=== PATIENT | male | born 1945 | race Caucasian/White ===

== ENCOUNTER 2018-04-17 08:02 | Emergency (ER) | payer OTHER ==
--- NOTE | 2018-04-17 08:38 | ED ---
General Adult HPI - General Chief complaint: Fall Stated complaint: Fell/rib pain Source: patient Mode of arrival: ambulatory Limitations: no limitations - History of Present Illness Initial comments: Dictation was produced using [employer] dictation software. please excuse any grammatical, word or spelling errors. Chief Complaint: 72-year-old male past medical history of A. fib, diabetes and hypertension presents with left chest pain after fall. History of Present Illness: States yesterday patient took a step over a baby gate approximately 2 feet tall. He states his foot got caught up. Causing him to fall laterally on his left side. He fell on his left arm scraping his left elbow. Patient reports some left-sided chest pain. Patient feels as though he may have fractured some of his ribs on his left chest. Patient complains of tenderness to palpation over the left anterior chest. Denies any significant tenderness to his back or with deep inspiration. The ROS documented in this emergency department record has been reviewed and confirmed by me. Those systems with pertinent positive or negative responses have been documented in the HPI. All other systems are other negative and/or noncontributory. - Related Data Home Medications Medication Instructions Recorded Confirmed Carvedilol [Coreg] 12.5 mg PO BID 04/17/18 04/17/18 Diltiazem Cd [Cardizem Cd] 120 mg PO DAILY 04/17/18 04/17/18 Fenofibrate Nanocrystallized 145 mg PO HS 04/17/18 04/17/18 [Fenofibrate] Folic Acid 0.4 mg PO HS 04/17/18 04/17/18 Glimepiride [Amaryl] 4 mg PO BID 04/17/18 04/17/18 Insulin Detemir [Levemir] 30 unit SQ HS 04/17/18 04/17/18 Losartan Potassium [Cozaar] 25 mg PO HS 04/17/18 04/17/18 Warfarin Sodium [Jantoven] 5 mg PO HS 04/17/18 04/17/18 metFORMIN HCL 1,000 mg PO BID 04/17/18 04/17/18 Allergies Allergy/AdvReac Type Severity Reaction Status Date / Time No Known Allergies Allergy Verified 04/17/18 09:05 Review of Systems ROS Statement: Those systems with pertinent positive or pertinent negative responses have been documented in the HPI. ROS Other: All systems not noted in ROS Statement are negative. Past Medical History Past Medical History: Atrial Fibrillation, Diabetes Mellitus, Hypertension History of Any Multi-Drug Resistant Organisms: None Reported Past Surgical History: Cholecystectomy Additional Past Surgical History / Comment(s): Prostate Past Psychological History: No Psychological Hx Reported Smoking Status: Never smoker Past Alcohol Use History: Occasional Past Drug Use History: None Reported General Exam - General Exam Comments Initial Comments: PHYSICAL EXAM: General Impression: Alert and oriented x3, not in acute distress HEENT: Normocephalic atraumatic, extra-ocular movements intact, pupils equal and reactive to light bilaterally, mucous membranes moist. Cardiovascular: Heart regular rate and rhythm, S1&S2 audible, no murmurs, rubs or gallops Chest: Lungs clear to auscultation bilaterally, no rhonchi, no wheeze, no rales , mild tenderness to palpation of the left anterior chest Abdomen: Bowel sounds present, abdomen soft, non-tender, non-distended, no organomegaly Musculoskeletal: Pulses present and equal in all extremities, no peripheral edema Motor: Power 5/5 bilaterally, no focal deficits noted Neurological: CN II-XII grossly intact, no focal motor or sensory deficits noted Skin: Intact with no visualized rashes Psych: Normal affect and mood Limitations: no limitations Course Vital Signs 04/17/18 04/17/18 08:06 09:57 Temperature 97.6 F 98.2 F Pulse Rate 78 77 Respiratory 20 18 Rate Blood Pressure 120/78 129/80 O2 Sat by Pulse 99 97 Oximetry Medical Decision Making - Medical Decision Making ED course: 72-year-old male with past medical history of age fibrillation on blood thinners presents with left chest pain status post fall. Vital signs upon arrival are within acceptable limits. Laboratory evaluation obtained. INR 1.7. This is subtherapeutic for him. X-ray of the ribs and chest were obtained showing possible evidence of nondisplaced rib fractures. Given clinical presentation there is suspicion that patient does have rib fractures. Patient states his pain isn't terrible. He does fill comfortable going home. Patient is well-appearing. Patient states he believes he can manage this at home. Patient given incentive spirometer and education by respiratory therapy. Lidocaine patch is applied. Patient underwent incentive spirometry with respiratory therapy without any significant complications. Patient states that he will take Tylenol at home. Follow-up with his primary care physician early next week. Patient understandable agreeable to this plan. Mirna return to the emergency Department with any worsening symptoms. - Lab Data Lab Results 04/17/18 Range/Units 08:40 PT 16.5 H (9.0-12.0) sec INR 1.7 H (<1.2) Disposition Clinical Impression: Rib fracture Disposition: HOME SELF-CARE Instructions: Rib Fracture (ED) Is patient prescribed a controlled substance at d/c from ED?: No Referrals: None,Stated [Primary Care Provider] - 1-2 days Time of Disposition: 10:09
--- NOTE | 2018-04-17 08:59 | XR ---
EXAMINATION TYPE: XR chest 2V, XR ribs LT DATE OF EXAM: 04/17/2018 COMPARISON: NONE HISTORY: Chest and left-sided rib pain after fall injury. TECHNIQUE: Frontal and lateral views of the chest are obtained. A frontal and oblique images of the left-sided ribs are acquired. FINDINGS: There is no focal air space opacity, pleural effusion, or pneumothorax seen. The cardiac silhouette size is within normal limits. Multilevel spurring in the thoracic spine is present. Cholec ystectomy clips are noted. Dedicated images the left-sided ribs show age-indeterminate mildly displaced fracture of the anterola teral left seventh rib, cannot exclude acute fracture, correlate clinically with point tenderness at this level. Suspect age-indeterminate minimally displaced of the adjacent anterolateral inferior left eighth rib. Overlying soft tissue is unremarkable. IMPRESSION: 1. No acute cardiopulmonary process. 2. Age-indeterminate but suspected acute minimally displaced fractures of the anterolateral left marcelle nth and eighth ribs. Correlate clinically with point tenderness at this level.
[2018-04-17 09:06] LABS: INR 1.7 (<1.2); Prothrombin Time 16.5 sec (9.0-12.0)
[2018-04-17] MEDS ORDERED: LIDOCAINE 5% PATCH TOPICAL STA (09:38)
[2018-04-17 09:58] VITALS: BP 129/80; PULSE 77; RESP 18; TEMP 98.2
== END 2018-04-17 10:28 | disposition home or self-care (01) ==
LOC: EC 08:02
DX: S22.32XA Fracture of one rib, left side, initial encounter for closed fracture (principal); S50.312A Abrasion of left elbow, initial encounter; I48.91 Unspecified atrial fibrillation; E11.9 Type 2 diabetes mellitus without complications; I10 Essential (primary) hypertension; Z79.4 Long term (current) use of insulin; Z79.01 Long term (current) use of anticoagulants; Z79.899 Other long term (current) drug therapy; W17.89XA Other fall from one level to another, initial encounter; Y93.89 Activity, other specified; Y92.009 Unspecified place in unspecified non-institutional (private) residence as the place of occurrence of the external cause
CPT/HCPCS: 36415; 71046; 85610; 99284

== ENCOUNTER 2022-03-10 02:57 | Emergency (ER) | payer MEDICARE, OTHER ==
[2022-03-10 03:04] VITALS: BP 175/85; PULSE 75; RESP 22; TEMP 97.7
[2022-03-10] MEDS ORDERED: ASPIRIN 81 MG PO STA (03:25)
[2022-03-10 03:36] LABS: Basophils # (A) 0.1 k/uL (0-0.2); Basophils % (A) 1 %; Eosinophils # (A) 0.2 k/uL (0-0.7); Eosinophils % (A) 3 %; HCT 42.4 % (39.0-53.0); HGB 14.9 gm/dL (13.0-17.5); Lymphocytes # (A) 1.4 k/uL (1.0-4.8); Lymphocytes % (A) 18 %; MCHC 35.2 g/dL (31.0-37.0); Mean Platelet Volume 8.8; Monocytes # (A) 0.6 k/uL (0-1.0); Monocytes % (A) 8 %; Neutrophils # (A) 5.2 k/uL (1.3-7.7); Neutrophils % (A) 68 %; Platelet Count 155 k/uL (150-450); RBC 4.82 m/uL (4.30-5.90); RDW 14.3 % (11.5-15.5); WBC 7.7 k/uL (3.8-10.6)
[2022-03-10 03:46] LABS: Partial Thromboplastin Time 38.7 sec (22.0-30.0); Prothrombin Time 30.2 sec (9.0-12.0)
[2022-03-10 03:58] LABS: ALT 22 U/L (4-49); AST 21 U/L (17-59); African American GFR (CKD) >90 (>60 ml/min/1.73 sqM); Albumin 4.2 g/dL (3.5-5.0); Alkaline Phosphatase 55 U/L (38-126); Anion Gap 6 mmol/L; Blood Urea Nitrogen 17 mg/dL (9-20); Calcium 8.7 mg/dL (8.4-10.2); Carbon Dioxide 27 mmol/L (22-30); Chloride 103 mmol/L (98-107); Glucose 174 mg/dL (74-99); Magnesium 1.9 mg/dL (1.6-2.3); Non-African American GFR(CKD) >90 (>60 ml/min/1.73 sqM); Potassium 4.5 mmol/L (3.5-5.1); Sodium 136 mmol/L (137-145)
--- NOTE | 2022-03-10 04:06 | ED ---
General Adult HPI - General Chief complaint: Shortness of Breath Stated complaint: Shortness of Breath Time Seen by Provider: 03/10/22 03:05 Source: patient, family, RN notes reviewed, old records reviewed Mode of arrival: wheelchair Limitations: no limitations - History of Present Illness Initial comments: Patient is a 76-year-old male with past medical history remarkable for atrial fibrillation, diabetes, hypertension who presents emergency Department complaining of one-day history of dyspnea. Patient has a difficult time describing it other than that he is short of breath. It seems to always be there and is constant. No real change with exertion. Patient is on blood thinners at baseline. Had a recent travel from [place]. Denies any lower e xtremity swelling or pain. Denies any history of blood clots. Denies any chest pain, abdominal pain, nausea, vomiting. His no other acute complaints other than this dyspnea. Denies fevers, chills, cough. Patient's is being worked up for pancreatic cancer at this time and is under more stress lately. Presents for further evaluation for his dyspnea. States is worse when sitting up, as well as when laying down. No known palliative or provocative factors. Has been constant all day. - Related Data Home Medications Medication Instructions Recorded Confirmed Diltiazem Cd [Cardizem Cd] 120 mg PO DAILY 04/17/18 04/17/18 Fenofibrate Nanocrystallized 145 mg PO HS 04/17/18 04/17/18 [Fenofibrate] Folic Acid 0.4 mg PO HS 04/17/18 04/17/18 Glimepiride [Amaryl] 4 mg PO BID 04/17/18 04/17/18 Insulin Detemir (Levemir) [Levemir] 30 unit SQ HS 04/17/18 04/17/18 Losartan Potassium [Cozaar] 25 mg PO HS 04/17/18 04/17/18 Warfarin Sodium [Jantoven] 5 mg PO HS 04/17/18 04/17/18 carvediloL [Coreg] 12.5 mg PO BID 04/17/18 04/17/18 metFORMIN HCL [Glucophage] 1,000 mg PO BID 04/17/18 04/17/18 Allergies Allergy/AdvReac Type Severity Reaction Status Date / Time No Known Allergies Allergy Verified 03/10/22 03:04 Review of Systems ROS Statement: Those systems with pertinent positive or pertinent negative responses have been documented in the HPI. Review of Systems: CONST: Denies fever EYES: Denies blurry vision ENT: Denies nasal congestion C/V: Denies Chest pain RESP: Endorses shortness of breath GI: Denies abdominal pain : Denies dysuria SKIN: Denies rash. MSK: Denies joint pain. NEURO: Denies headache ROS Other: All systems not noted in ROS Statement are negative. Past Medical History Past Medical History: Atrial Fibrillation, Diabetes Mellitus, Hypertension History of Any Multi-Drug Resistant Organisms: None Reported Past Surgical History: Cholecystectomy Additional Past Surgical History / Comment(s): Prostate Past Psychological History: No Psychological Hx Reported Smoking Status: Never smoker Past Alcohol Use History: Occasional Past Drug Use History: None Reported General Exam - General Exam Comments Initial Comments: General: Appears in no acute distress. HEAD: Normal with no signs of head trauma. EYES: PERRLA, EOMI, conjunctiva normal, no discharge. ENT: Hearing grossly intact, normal oropharynx. RESPIRATORY: Clear breath sounds bilaterally. No wheezes, rales, or rhonchi. No increased work of breathing. No hypoxia. C/V: Regular rate and rhythm. S1 and S2 auscultated, no edema, peripheral pulses 2+ and intact throughout ABD: Abd is soft, nontender, nondistended EXT: Normal range of motion, no obvious deformity SKIN: No rashes or lesions observed on exposed skin. NEURO: Alert and oriented 4. No focal sensory strength deficits. Limitations: no limitations Course Vital Signs 03/10/22 03:02 Temperature 97.7 F Pulse Rate 75 Respiratory 22 Rate Blood Pressure 175/85 O2 Sat by Pulse 95 Oximetry Medical Decision Making - Medical Decision Making [place] on the patient's presentation and physical exam, I'm concerned for possible cardiopulmonary etiology for his current symptoms. We will check his INR as he is on Coumadin for atrial fibrillation. We'll obtain cardio pulmonary labs. He was in agreement this plan. He will be given an aspirin. Vital signs within acceptable limits. No respiratory distress. Cannot definitively rule out anxiety as potential cause for this. EKG showed atrial fibrillation with no signs of acute ischemia. Chest x-ray as interpreted by myself reveals no acute cardiopulmonary process. No infiltrate, bony traumatic injury, pneumothorax. Laboratory studies remarkable for a therapeutic INR of 3.0. Troponin is undetectable. BNP within normal limits. Covid and flu negative. Remainder the labs are within acceptable limits. On reevaluation, patient states that his dyspnea has resolved. Patient has been sitting without any dyspnea at this time. We did lay the patient down as well as ambulate him and dyspnea and did not return. I did offer him CT of the chest to further evaluate his lungs which she declined at this time. We have no concern for PE at this time as the patient is a therapeutic INR on Coumadin. I do believe it is safe for him to be discharged home at this time, with strict return precautions. He was in agreement this plan. I instructed the patient to follow up with their PCP in the next 1-3 days. I explained that the patient should return to the emergency department if they experience any worsening symptoms. Strict return precautions were discussed with the patient. The patient expressed understanding of these instructions. I answ ered all questions that the patient had. The patient was discharged home in good condition with their prescriptions and follow up information. - Lab Data Result diagrams: 03/10/22 03:12 03/10/22 03:12 Lab Results 03/10/22 03/10/22 03/10/22 Range/Units 03:12 03:12 03:12 WBC 7.7 (3.8-10.6) k/uL RBC 4.82 (4.30-5.90) m/uL Hgb 14.9 (13.0-17.5) gm/dL Hct 42.4 (39.0-53.0) % MCV 88.0 (80.0-100.0) fL MCH 31.0 (25.0-35.0) pg MCHC 35.2 (31.0-37.0) g/dL RDW 14.3 (11.5-15.5) % Plt Count 155 (150-450) k/uL MPV 8.8 Neutrophils % 68 % Lymphocytes % 18 % Monocytes % 8 % Eosinophils % 3 % Basophils % 1 % Neutrophils # 5.2 (1.3-7.7) k/uL Lymphocytes # 1.4 (1.0-4.8) k/uL Monocytes # 0.6 (0-1.0) k/uL Eosinophils # 0.2 (0-0.7) k/uL Basophils # 0.1 (0-0.2) k/uL PT 30.2 H (9.0-12.0) sec INR 3.0 H (<1.2) APTT 38.7 H (22.0-30.0) sec Sodium 136 L (137-145) mmol/L Potassium 4.5 (3.5-5.1) mmol/L Chloride 103 (98-107) mmol/L Carbon Dioxide 27 (22-30) mmol/L Anion Gap 6 mmol/L BUN 17 (9-20) mg/dL Creatinine 0.72 (0.66-1.25) mg/dL Est GFR (CKD-EPI)AfAm >90 (>60 ml/min/1.73 sqM) Est GFR (CKD-EPI)NonAf >90 (>60 ml/min/1.73 sqM) Glucose 174 H (74-99) mg/dL Calcium 8.7 (8.4-10.2) mg/dL Magnesium 1.9 (1.6-2.3) mg/dL Total Bilirubin 1.0 (0.2-1.3) mg/dL AST 21 (17-59) U/L ALT 22 (4-49) U/L Alkaline Phosphatase 55 (38-126) U/L Troponin I (0.000-0.034) ng/mL NT-Pro-B Natriuret Pep pg/mL Total Protein 7.0 (6.3-8.2) g/dL Albumin 4.2 (3.5-5.0) g/dL Coronavirus (PCR) (Not Detectd) Influenza Type A RNA (Not Detectd) Influenza Type B (PCR) (Not Detectd) 03/10/22 03/10/22 03/10/22 Range/Units 03:12 03:12 03:45 WBC (3.8-10.6) k/uL RBC (4.30-5.90) m/uL Hgb (13.0-17.5) gm/dL Hct (39.0-53.0) % MCV (80.0-100.0) fL MCH (25.0-35.0) pg MCHC (31.0-37.0) g/dL RDW (11.5-15.5) % Plt Count (150-450) k/uL MPV Neutrophils % % Lymphocytes % % Monocytes % % Eosinophils % % Basophils % % Neutrophils # (1.3-7.7) k/uL Lymphocytes # (1.0-4.8) k/uL Monocytes # (0-1.0) k/uL Eosinophils # (0-0.7) k/uL Basophils # (0-0.2) k/uL PT (9.0-12.0) sec INR (<1.2) APTT (22.0-30.0) sec Sodium (137-145) mmol/L Potassium (3.5-5.1) mmol/L Chloride (98-107) mmol/L Carbon Dioxide (22-30) mmol/L Anion Gap mmol/L BUN (9-20) mg/dL Creatinine (0.66-1.25) mg/dL Est GFR (CKD-EPI)AfAm (>60 ml/min/1.73 sqM) Est GFR (CKD-EPI)NonAf (>60 ml/min/1.73 sqM) Glucose (74-99) mg/dL Calcium (8.4-10.2) mg/dL Magnesium (1.6-2.3) mg/dL Total Bilirubin (0.2-1.3) mg/dL AST (17-59) U/L ALT (4-49) U/L Alkaline Phosphatase (38-126) U/L Troponin I <0.012 (0.000-0.034) ng/mL NT-Pro-B Natriuret Pep 612 pg/mL Total Protein (6.3-8.2) g/dL Albumin (3.5-5.0) g/dL Coronavirus (PCR) (Not Detectd) Influenza Type A RNA Not Detected (Not Detectd) Influenza Type B (PCR) Not Detected (Not Detectd) 03/10/22 Range/Units 03:45 WBC (3.8-10.6) k/uL RBC (4.30-5.90) m/uL Hgb (13.0-17.5) gm/dL Hct (39.0-53.0) % MCV (80.0-100.0) fL MCH (25.0-35.0) pg MCHC (31.0-37.0) g/dL RDW (11.5-15.5) % Plt Count (150-450) k/uL MPV Neutrophils % % Lymphocytes % % Monocytes % % Eosinophils % % Basophils % % Neutrophils # (1.3-7.7) k/uL Lymphocytes # (1.0-4.8) k/uL Monocytes # (0-1.0) k/uL Eosinophils # (0-0.7) k/uL Basophils # (0-0.2) k/uL PT (9.0-12.0) sec INR (<1.2) APTT (22.0-30.0) sec Sodium (137-145) mmol/L Potassium (3.5-5.1) mmol/L Chloride (98-107) mmol/L Carbon Dioxide (22-30) mmol/L Anion Gap mmol/L BUN (9-20) mg/dL Creatinine (0.66-1.25) mg/dL Est GFR (CKD-EPI)AfAm (>60 ml/min/1.73 sqM) Est GFR (CKD-EPI)NonAf (>60 ml/min/1.73 sqM) Glucose (74-99) mg/dL Calcium (8.4-10.2) mg/dL Magnesium (1.6-2.3) mg/dL Total Bilirubin (0.2-1.3) mg/dL AST (17-59) U/L ALT (4-49) U/L Alkaline Phosphatase (38-126) U/L Troponin I (0.000-0.034) ng/mL NT-Pro-B Natriuret Pep pg/mL Total Protein (6.3-8.2) g/dL Albumin (3.5-5.0) g/dL Coronavirus (PCR) Not Detected (Not Detectd) Influenza Type A RNA (Not Detectd) Influenza Type B (PCR) (Not Detectd) - EKG Data -: EKG Interpreted by Me EKG Comments: 12-lead Electrocardiogram Interpretation Note EKG was reviewed and interpreted by myself. 12-lead ECG performed at 0312 is interpreted by me as revealing atrial fibrillation at a rate of 75 beats per minute. [place] is normal. QRS duration is 90 ms, QTc is 419 ms. There were no ST or T wave abnormalities to suggest myocardial ischemia or injury. R wave progression across the precordium was satisfactory. By my interpretation this EKG is non-diagnostic for acute ischemia. History of atrial fibrillation. No prior EKG for comparison. Disposition Clinical Impression: Dyspnea Disposition: HOME SELF-CARE Condition: Good Instructions (If sedation given, give patient instructions): Dyspnea (ED) Is patient prescribed a controlled substance at d/c from ED?: No Referrals: Nonstaff,Physician [Primary Care Provider] - 1-2 days Time of Disposition: 04:45
--- NOTE | 2022-03-10 04:24 | XR ---
EXAMINATION TYPE: XR chest 2V DATE OF EXAM: 03/10/2022 COMPARISON: 04/17/2018 HISTORY: Short of breath TECHNIQUE: FINDINGS: There is no heart failure nor confluent pneumonic infiltrate. Costophrenic angles are clear . There are chest leads. There are no hilar masses. Bony thorax is intact. IMPRESSION: No active cardiopulmonary disease. Normal heart. No change.
== END 2022-03-10 05:28 | disposition home or self-care (01) ==
LOC: EC 02:57
DX: R06.00 Dyspnea, unspecified (principal); I48.91 Unspecified atrial fibrillation; E11.9 Type 2 diabetes mellitus without complications; I10 Essential (primary) hypertension; Z79.4 Long term (current) use of insulin; Z79.84 Long term (current) use of oral hypoglycemic drugs; Z79.899 Other long term (current) drug therapy; Z20.822 Contact with and (suspected) exposure to COVID-19
CPT/HCPCS: 36415; 71046; 80053; 83735; 83880; 84484; 85025; 85610; 85730; 87502; 87635; 93005; 99285

== ENCOUNTER 2022-03-10 20:01 | Observation (INO) | payer MEDICARE ==
--- NOTE | 2022-03-10 21:58 | XR ---
EXAMINATION TYPE: XR chest 2V DATE OF EXAM: 03/10/2022 COMPARISON: Today HISTORY: Short of breath TECHNIQUE: FINDINGS: Heart and mediastinum are normal. Lungs are clear. Diaphragm is normal. Bony thorax is inta ct. IMPRESSION: Normal chest. No adverse change.
--- NOTE | 2022-03-10 22:06 | ED ---
General Adult HPI - General Chief complaint: Shortness of Breath Stated complaint: SOB Time Seen by Provider: 03/10/22 21:15 Source: patient, RN notes reviewed, old records reviewed Mode of arrival: ambulatory Limitations: no limitations - History of Present Illness Initial comments: Patient is a 76-year-old male who has a history of diabetes, atrial flutter ablation, hypertension who was evaluated by myself this morning presents emergency Department complaining of continued shortness of breath. Patient has been having dyspnea episodes for a few days. Yesterday was bad all day, but resolved while he was here in the department. Workup at that time was unremarkable. We did offer him a CT scan which she declined at that time. Since he was feeling improved he wanted to go home and return if it got worse. He returns this evening because the dyspnea returned this afternoon no changes from yesterday. States it is constant and not worse with exertion. Not really any worse with position but states he feels like he cannot fully empty his heriberto gs. No smoking history. No history of asthma or COPD. No productive cough, no fevers. No chest pain, abdominal pain, nausea, vomiting. Presents for further evaluation at this time. - Related Data Home Medications Medication Instructions Recorded Confirmed Diltiazem Cd [Cardizem Cd] 120 mg PO DAILY 04/17/18 04/17/18 Fenofibrate Nanocrystallized 145 mg PO HS 04/17/18 04/17/18 [Fenofibrate] Folic Acid 0.4 mg PO HS 04/17/18 04/17/18 Glimepiride [Amaryl] 4 mg PO BID 04/17/18 04/17/18 Insulin Detemir (Levemir) [Levemir] 30 unit SQ HS 04/17/18 04/17/18 Losartan Potassium [Cozaar] 25 mg PO HS 04/17/18 04/17/18 Warfarin Sodium [Jantoven] 5 mg PO HS 04/17/18 04/17/18 carvediloL [Coreg] 12.5 mg PO BID 04/17/18 04/17/18 metFORMIN HCL [Glucophage] 1,000 mg PO BID 04/17/18 04/17/18 Allergies Allergy/AdvReac Type Severity Reaction Status Date / Time No Known Allergies Allergy Verified 03/10/22 20:21 Review of Systems ROS Statement: Those systems with pertinent positive or pertinent negative responses have been documented in the HPI. Review of Systems: CONST: Denies fever EYES: Denies blurry vision ENT: Denies nasal congestion C/V: Denies Chest pain RESP: Endorses shortness of breath GI: Denies abdominal pain : Denies dysuria SKIN: Denies rash. MSK: Denies joint pain. NEURO: Denies headache ROS Other: All systems not noted in ROS Statement are negative. Past Medical History Past Medical History: Atrial Fibrillation, Diabetes Mellitus, Hypertension History of Any Multi-Drug Resistant Organisms: None Reported Past Surgical History: Cholecystectomy Additional Past Surgical History / Comment(s): Prostate Past Psychological History: No Psychological Hx Reported Smoking Status: Never smoker Past Alcohol Use History: Occasional Past Drug Use History: None Reported General Exam - General Exam Comments Initial Comments: General: Appears in no acute distress. HEAD: Normal with no signs of head trauma. EYES: PERRLA, EOMI, conjunctiva normal, no discharge. ENT: Hearing grossly intact, normal oropharynx. RESPIRATORY: Clear breath sounds bilaterally. No wheezes, rales, or rhonchi. No increased work of breathing.. Pulse ox is 96% on room air C/V: Irregular rate and rhythm. S1 and S2 auscultated, no edema, peripheral pulses 2+ and intact throughout ABD: Abd is soft, nontender, nondistended EXT: Normal range of motion, no obvious deformity SKIN: No rashes or lesions observed on exposed skin. NEURO: Alert and oriented 4. Limitations: no limitations Course Vital Signs 03/10/22 03/10/22 03/10/22 20:16 20:34 22:00 Temperature 97.4 F L Pulse Rate 84 76 Respiratory 25 H 18 16 Rate Blood Pressure 157/86 151/87 O2 Sat by Pulse 93 L 96 Oximetry 03/10/22 03/11/22 23:00 00:00 Temperature Pulse Rate 85 83 Respiratory 20 16 Rate Blood Pressure 153/85 135/83 O2 Sat by Pulse 92 L 95 Oximetry Medical Decision Making - Medical Decision Making Based on the patient's presentation and physical exam, he presents with dyspnea of unknown etiology once again this evening. We will obtain cardio pulmonary workup somewhat yesterday as well as obtain a CT angiogram of the chest. He was in agreement this plan. Vital signs within acceptable limits. EKG shows no signs of acute ischemia. Chest x-ray as interpreted by myself reveals no acute cardio pulmonary process. No pneumothorax, no infiltrate, no acute bony traumatic injury.Patient's laboratory studies once again were within acceptable limits. He is slightly hyperglycemic at 242. Lactate, troponin, BNP all unremarkable. Urinalysis is remarkable for 4+ glucose. Covid, flu, RSV negative. Patient has a therapeutic INR. CT chest is interpreted by myself showed no evidence of acute pulmonary embolism. No obvious signs of infection. No pneumothorax. No obvious explanation for his current symptoms. The patient was ambulated, patient did become somewhat hypoxic down into the upper 80%'s. Patient did not have this yesterday, as saturations remained in th e 90%'s is morning and discharge. We did discuss this and I would like to admit him to the hospital for echocardiogram and evaluation by cardiology over concern for possible valvular pathology causing his current symptoms. Cannot rule out pulmonary hypertension either. He was in agreement with this plan. He is relatively asymptomatic at rest. We'll continue his home medications. Cardiology was consulted. Echo was ordered. I spoke with the admitting physician to observation, Dr. Chowdary was in agreement with this plan. Patient was admitted in stable condition. - Lab Data Result diagrams: 03/10/22 22:00 03/10/22 22:00 Lab Results 03/10/22 03/10/22 03/10/22 Range/Units 21:58 21:58 22:00 WBC 8.6 (3.8-10.6) k/uL RBC 4.76 (4.30-5.90) m/uL Hgb 14.6 (13.0-17.5) gm/dL Hct 41.9 (39.0-53.0) % MCV 88.0 (80.0-100.0) fL MCH 30.6 (25.0-35.0) pg MCHC 34.8 (31.0-37.0) g/dL RDW 14.1 (11.5-15.5) % Plt Count 179 (150-450) k/uL MPV 8.6 Neutrophils % 72 % Lymphocytes % 15 % Monocytes % 8 % Eosinophils % 3 % Basophils % 1 % Neutrophils # 6.2 (1.3-7.7) k/uL Lymphocytes # 1.3 (1.0-4.8) k/uL Monocytes # 0.7 (0-1.0) k/uL Eosinophils # 0.2 (0-0.7) k/uL Basophils # 0.1 (0-0.2) k/uL PT (9.0-12.0) sec INR (<1.2) APTT (22.0-30.0) sec Sodium (137-145) mmol/L Potassium (3.5-5.1) mmol/L Chloride (98-107) mmol/L Carbon Dioxide (22-30) mmol/L Anion Gap mmol/L BUN (9-20) mg/dL Creatinine (0.66-1.25) mg/dL Est GFR (CKD-EPI)AfAm (>60 ml/min/1.73 sqM) Est GFR (CKD-EPI)NonAf (>60 ml/min/1.73 sqM) Glucose (74-99) mg/dL Plasma Lactic Acid Stephan 1.3 (0.7-2.0) mmol/L Calcium (8.4-10.2) mg/dL Magnesium (1.6-2.3) mg/dL Total Bilirubin (0.2-1.3) mg/dL AST (17-59) U/L ALT (4-49) U/L Alkaline Phosphatase (38-126) U/L Troponin I (0.000-0.034) ng/mL NT-Pro-B Natriuret Pep pg/mL Total Protein (6.3-8.2) g/dL Albumin (3.5-5.0) g/dL Urine Color Urine Appearance (Clear) Urine pH (5.0-8.0) Ur Specific [place] (1.001-1.035) Urine Protein (Negative) Urine Glucose (UA) (Negative) Urine Ketones (Negative) Urine Blood (Negative) Urine Nitrite (Negative) Urine Bilirubin (Negative) Urine Urobilinogen (<2.0) mg/dL Ur Leukocyte Esterase (Negative) Urine RBC (0-5) /hpf Urine WBC (0-5) /hpf Ur Squamous Epith Cells (0-4) /hpf Urine Mucus (None) /hpf Influenza Type A (PCR) Not Detected (Not Detectd) Influenza Type B (PCR) Not Detected (Not Detectd) RSV (PCR) Not Detected (Not Detectd) SARS-CoV-2 (PCR) Not Detected (Not Detectd) 03/10/22 03/10/22 03/10/22 Range/Units 22:00 22:00 22:00 WBC (3.8-10.6) k/uL RBC (4.30-5.90) m/uL Hgb (13.0-17.5) gm/dL Hct (39.0-53.0) % MCV (80.0-100.0) fL MCH (25.0-35.0) pg MCHC (31.0-37.0) g/dL RDW (11.5-15.5) % Plt Count (150-450) k/uL MPV Neutrophils % % Lymphocytes % % Monocytes % % Eosinophils % % Basophils % % Neutrophils # (1.3-7.7) k/uL Lymphocytes # (1.0-4.8) k/uL Monocytes # (0-1.0) k/uL Eosinophils # (0-0.7) k/uL Basophils # (0-0.2) k/uL PT 28.7 H (9.0-12.0) sec INR 2.9 H (<1.2) APTT 40.6 H (22.0-30.0) sec Sodium 135 L (137-145) mmol/L Potassium 4.7 (3.5-5.1) mmol/L Chloride 102 (98-107) mmol/L Carbon Dioxide 25 (22-30) mmol/L Anion Gap 8 mmol/L BUN 20 (9-20) mg/dL Creatinine 0.74 (0.66-1.25) mg/dL Est GFR (CKD-EPI)AfAm >90 (>60 ml/min/1.73 sqM) Est GFR (CKD-EPI)NonAf >90 (>60 ml/min/1.73 sqM) Glucose 242 H (74-99) mg/dL Plasma Lactic Acid Stephan (0.7-2.0) mmol/L Calcium 9.0 (8.4-10.2) mg/dL Magnesium 1.9 (1.6-2.3) mg/dL Total Bilirubin 1.2 (0.2-1.3) mg/dL AST 22 (17-59) U/L ALT 23 (4-49) U/L Alkaline Phosphatase 62 (38-126) U/L Troponin I <0.012 (0.000-0.034) ng/mL NT-Pro-B Natriuret Pep pg/mL Total Protein 7.1 (6.3-8.2) g/dL Albumin 4.4 (3.5-5.0) g/dL Urine Color Urine Appearance (Clear) Urine pH (5.0-8.0) Ur Specific [place] (1.001-1.035) Urine Protein (Negative) Urine Glucose (UA) (Negative) Urine Ketones (Negative) Urine Blood (Negative) Urine Nitrite (Negative) Urine Bilirubin (Negative) Urine Urobilinogen (<2.0) mg/dL Ur Leukocyte Esterase (Negative) Urine RBC (0-5) /hpf Urine WBC (0-5) /hpf Ur Squamous Epith Cells (0-4) /hpf Urine Mucus (None) /hpf Influenza Type A (PCR) (Not Detectd) Influenza Type B (PCR) (Not Detectd) RSV (PCR) (Not Detectd) SARS-CoV-2 (PCR) (Not Detectd) 03/10/22 03/10/22 Range/Units 22:00 22:09 WBC (3.8-10.6) k/uL RBC (4.30-5.90) m/uL Hgb (13.0-17.5) gm/dL Hct (39.0-53.0) % MCV (80.0-100.0) fL MCH (25.0-35.0) pg MCHC (31.0-37.0) g/dL RDW (11.5-15.5) % Plt Count (150-450) k/uL MPV Neutrophils % % Lymphocytes % % Monocytes % % Eosinophils % % Basophils % % Neutrophils # (1.3-7.7) k/uL Lymphocytes # (1.0-4.8) k/uL Monocytes # (0-1.0) k/uL Eosinophils # (0-0.7) k/uL Basophils # (0-0.2) k/uL PT (9.0-12.0) sec INR (<1.2) APTT (22.0-30.0) sec Sodium (137-145) mmol/L Potassium (3.5-5.1) mmol/L Chloride (98-107) mmol/L Carbon Dioxide (22-30) mmol/L Anion Gap mmol/L BUN (9-20) mg/dL Creatinine (0.66-1.25) mg/dL Est GFR (CKD-EPI)AfAm (>60 ml/min/1.73 sqM) Est GFR (CKD-EPI)NonAf (>60 ml/min/1.73 sqM) Glucose (74-99) mg/dL Plasma Lactic Acid Stephan (0.7-2.0) mmol/L Calcium (8.4-10.2) mg/dL Magnesium (1.6-2.3) mg/dL Total Bilirubin (0.2-1.3) mg/dL AST (17-59) U/L ALT (4-49) U/L Alkaline Phosphatase (38-126) U/L Troponin I (0.000-0.034) ng/mL NT-Pro-B Natriuret Pep 647 pg/mL Total Protein (6.3-8.2) g/dL Albumin (3.5-5.0) g/dL Urine Color Yellow Urine Appearance Clear (Clear) Urine pH 5.5 (5.0-8.0) Ur Specific [place] 1.026 (1.001-1.035) Urine Protein 1+ H (Negative) Urine Glucose (UA) 4+ H (Negative) Urine Ketones Negative (Negative) Urine Blood Negative (Negative) Urine Nitrite Negative (Negative) Urine Bilirubin Negative (Negative) Urine Urobilinogen 3.0 (<2.0) mg/dL Ur Leukocyte Esterase Negative (Negative) Urine RBC 2 (0-5) /hpf Urine WBC <1 (0-5) /hpf Ur Squamous Epith Cells <1 (0-4) /hpf Urine Mucus Rare H (None) /hpf Influenza Type A (PCR) (Not Detectd) Influenza Type B (PCR) (Not Detectd) RSV (PCR) (Not Detectd) SARS-CoV-2 (PCR) (Not Detectd) - EKG Data -: EKG Interpreted by Me EKG Comments: 12-lead Electrocardiogram Interpretation Note EKG was reviewed and interpreted by myself. 12-lead ECG performed at 2152 is interpreted by me as revealing atrial fibrillation at a rate of 81 beats per minute. [place] is normal. QRS duration is 90 ms, QTc is 427 ms.. There were no ST or T wave abnormalities to suggest myocardial ischemia or injury. R wave progression across the precordium was satisfactory. By my interpretation this EKG is non-diagnostic for acute ischemia. When compared with EKG from earlier today, no significant change. Disposition Clinical Impression: Dyspnea, History of atrial fibrillation, Exertional dyspnea Disposition: ADMITTED IP TO THIS HOSP Condition: Stable Time of Disposition: 23:45
[2022-03-10 22:18] LABS: Basophils # (A) 0.1 k/uL (0-0.2); Basophils % (A) 1 %; Eosinophils # (A) 0.2 k/uL (0-0.7); Eosinophils % (A) 3 %; HCT 41.9 % (39.0-53.0); HGB 14.6 gm/dL (13.0-17.5); Lymphocytes # (A) 1.3 k/uL (1.0-4.8); Lymphocytes % (A) 15 %; MCH 30.6 pg (25.0-35.0); MCHC 34.8 g/dL (31.0-37.0); Mean Platelet Volume 8.6; Monocytes # (A) 0.7 k/uL (0-1.0); Monocytes % (A) 8 %; Neutrophils # (A) 6.2 k/uL (1.3-7.7); Neutrophils % (A) 72 %; Platelet Count 179 k/uL (150-450); RBC 4.76 m/uL (4.30-5.90); RDW 14.1 % (11.5-15.5); WBC 8.6 k/uL (3.8-10.6)
[2022-03-10 22:26] LABS: Appearance,Urine Clear (Clear); Bilirubin,Urine Negative (Negative); Blood,Urine Negative (Negative); Color,Urine Yellow; Glucose,Urine (UA) 4+ (Negative); Ketones,Urine Negative (Negative); Leukocyte Esterase,Urine Negative (Negative); Mucus,Urine Rare /hpf; Nitrite,Urine Negative (Negative); PH, Urine 5.5 (5.0-8.0); Protein,Urine 1+ (Negative); RBC,Urine 2 /hpf (0-5); Specific Gravity,Urine 1.026 (1.001-1.035); Squamous Epithelial Cell,Urine <1 /hpf (0-4); WBC,Urine <1 /hpf (0-5)
[2022-03-10 22:28] LABS: ALT 23 U/L (4-49); AST 22 U/L (17-59); African American GFR (CKD) >90 (>60 ml/min/1.73 sqM); Albumin 4.4 g/dL (3.5-5.0); Alkaline Phosphatase 62 U/L (38-126); Anion Gap 8 mmol/L; Blood Urea Nitrogen 20 mg/dL (9-20); Carbon Dioxide 25 mmol/L (22-30); Chloride 102 mmol/L (98-107); Glucose 242 mg/dL (74-99); Magnesium 1.9 mg/dL (1.6-2.3); Non-African American GFR(CKD) >90 (>60 ml/min/1.73 sqM); Potassium 4.7 mmol/L (3.5-5.1); Sodium 135 mmol/L (137-145); Total Bilirubin 1.2 mg/dL (0.2-1.3); Total Protein 7.1 g/dL (6.3-8.2)
[2022-03-10 22:32] LABS: INR 2.9 (<1.2); Partial Thromboplastin Time 40.6 sec (22.0-30.0); Prothrombin Time 28.7 sec (9.0-12.0)
--- NOTE | 2022-03-10 23:53 | CT ---
EXAMINATION TYPE: CT chest angio for PE DATE OF EXAM: 03/10/2022 COMPARISON: None HISTORY: SOB CT DLP: 516.5 mGycm Automated exposure control for dose reduction was used. CONTRAST: Performed with IV Contrast, patient injected with 100 mL of Isovue 370. Images obtained from the thoracic inlet to the diaphragm with the IV contrast. There are Three-D post processed images. The lungs are clear of consolidation. No pleural effusion. No evidence of a pulmonary mass. Heart siz e is normal. No pericardial effusion. There is no mediastinal adenopathy. There are a few paratracheal lymph nodes up to 1 cm. There are no hilar masses. There is no evidence of filling defect in the pulmonary arteries. The thoracic aorta is intact. No an eurysm or dissection. The thoracic spine is intact. No compression fracture. There is some degenerati ve spurring in the thoracic spine. Sternum is intact. IMPRESSION: Negative exam. No evidence of a pulmonary embolism. No acute lung disease.
[2022-03-11] MEDS ORDERED: NALOXONE 0.4 MG/ML 1 ML VIAL IV PRN (00:09)
--- NOTE | 2022-03-11 02:01 | P.HPIM ---
History of Present Illness H&P Date: 03/11/22 The patient is a 76-year-old male with a PMH of A. fib on Coumadin, type II DM, and hypertension who presents to the emergency room with complaints of shortness of breath. The patient states that over the past 2-3 days, he has been experiencing dyspnea at rest. He reports that his most pronounced with laying flat on his back or if he is sitting up and leaning back in a chair. States t hat it is improved with his legs hanging off the side of the bed. States that the dyspnea and is not worsened with exertion. Reports a somewhat chronic bilateral lower extremity pitting edema. Denies experiencing chest discomfort, fever, chills, cough, nausea, vomiting, diaphoresis. Chest CT in the emergency room was negative for PE. Laboratory evaluation was remarkable for glucose of 242 with troponin less than 0.012 and proBNP 647. Of note, the patient had presented the day prior with similar complaints when his symptoms, however his symptoms had resolved during the emergency room visit, at which point he was discharged home. Today however, the patient was also noted to be hypoxic with SpO2 93% on room air at rest which would drop to 88% with exertion. Review of systems: Pertinent positives and negatives as discussed in HPI, a complete review of systems was performed and all other systems are negative. Physical examination: General: non toxic, no distress, appears at stated age, obese Derm: no unusual rashes/lesions, warm Head: atraumatic, normocephalic, symmetric Eyes: EOMI, no lid lag, anicteric sclera, pupils equal round reactive to light ENT: Nose and ears atraumatic Neck: No cervical lymphadenopathy, trachea midline, supple Mouth: no lip lesion, mucus membranes moist Cardiovascular: S1S2 reg, no murmur, positive dorsalis pedis pulse bilateral, 2+ bilateral lower extremity pitting edema to knees Lungs: CTA bilateral, no rhonchi, no rales, no accessory muscle use Abdominal: soft, nontender to palpation, no guarding Ext: muscle strength 5 out of 5 in all 4 extremities grossly, no gross muscle atrophy, no contractures, Neuro: CN II-XI grossly intact, no gross focal neuro deficits Psych: Alert, oriented, appropriate affect Assessment/plan Shortness of breath and hypoxia, unclear etiology -Chest CTA negative for PE -Obtain echocardiogram -Cardiac monitoring Chronic conditions: A. fib, type II DM, hypertension -Continue with home meds DVT prophylaxis -Coumadin The patient is admitted with an anticipated less than 2 midnight stay for evaluation of shortness of breath. CODE STATUS: Full Code Discussed with: Patient Anticipated discharge date: In a.m. Anticipated discharge place: Home Past Medical History Past Medical History: Atrial Fibrillation, Diabetes Mellitus, Hypertension History of Any Multi-Drug Resistant Organisms: None Reported Past Surgical History: Cholecystectomy Additional Past Surgical History / Comment(s): Prostate Past Psychological History: No Psychological Hx Reported Smoking Status: Never smoker Past Alcohol Use History: Occasional Past Drug Use History: None Reported - Past Family History Mother Family Medical History: Hypertension Medications and Allergies Home Medications Medication Instructions Recorded Confirmed Type Diltiazem Cd [Cardizem Cd] 120 mg PO DAILY 04/17/18 04/17/18 History Fenofibrate Nanocrystallized 145 mg PO HS 04/17/18 04/17/18 History [Fenofibrate] Folic Acid 0.4 mg PO HS 04/17/18 04/17/18 History Glimepiride [Amaryl] 4 mg PO BID 04/17/18 04/17/18 History Insulin Detemir (Levemir) [Levemir] 30 unit SQ HS 04/17/18 04/17/18 History Losartan Potassium [Cozaar] 25 mg PO HS 04/17/18 04/17/18 History Warfarin Sodium [Jantoven] 5 mg PO HS 04/17/18 04/17/18 History carvediloL [Coreg] 12.5 mg PO BID 04/17/18 04/17/18 History metFORMIN HCL [Glucophage] 1,000 mg PO BID 04/17/18 04/17/18 History Allergies Allergy/AdvReac Type Severity Reaction Status Date / Time No Known Allergies Allergy Verified 03/10/22 20:21 Physical Exam Vitals: Vital Signs Temp Pulse Resp BP Pulse Ox 03/11/22 00:00 83 16 135/83 95 03/10/22 23:00 85 20 153/85 92 L 03/10/22 22:00 76 16 151/87 96 03/10/22 20:34 18 03/10/22 20:16 97.4 F L 84 25 H 157/86 93 L Intake and Output 03/10/22 03/10/22 03/11/22 14:59 22:59 06:59 Other: Weight 113.398 kg Results CBC & Chem 7: 03/10/22 22:00 03/10/22 22:00 Labs: Abnormal Lab Results - Last 24 Hours (Table) 03/10/22 03/10/22 03/10/22 Range/Units 22:00 22:00 22:09 PT 28.7 H (9.0-12.0) sec INR 2.9 H (<1.2) APTT 40.6 H (22.0-30.0) sec Sodium 135 L (137-145) mmol/L Glucose 242 H (74-99) mg/dL Urine Protein 1+ H (Negative) Urine Glucose (UA) 4+ H (Negative) Urine Mucus Rare H (None) /hpf
[2022-03-11 06:49] LABS: Glucose,Whole Blood 158 mg/dL (70-110)
[2022-03-11] MEDS: carvediloL 6.25 MG TAB PO SCH ×2 (07:18→11:23)
[2022-03-11] MEDS: INSULIN ASPART (NovoLOG) 100 UNIT/ML VIAL SQ SCH ×4 (07:19→20:40)
[2022-03-11] MEDS ORDERED: GLIMEPIRIDE 4 MG TAB PO SCH (09:00)
[2022-03-11] MEDS ORDERED: metFORMIN 500 MG TAB PO SCH (09:00)
[2022-03-11 09:47] LABS: INR 2.64 (0.90-1.11); Prothrombin Time 28.7 sec (9.9-11.9)
--- NOTE | 2022-03-11 10:02 | P.CRDCN ---
History of Present Illness History of present illness: HISTORY OF PRESENT ILLNESS: This is a 76-year-old male with a past medical history significant for permanent atrial fibrillation and unsuccessful cardioversion. Patient lives in [place] and is up visiting his family for . He follows with a cable maintainer near his hometown. We have been asked to see the patient in consultation for shortness of breath. Patient examined at the bedside. Patient states he has been having shortness of breath over the past few days. He states it was worse when he was laying flat in bed. He states he had dissected in a chair and lean forward to catch his breath. This morning, he states his breathing is stable. He denies having any shortness of breath. He denies any chest pain or pressure. He denies any history of coronary artery disease or congestive heart failure. He does have bilateral lower extremity edema. He reports that he is not always compliant with a low-salt diet at home. * EKG reveals atrial fibrillation with controlled ventricular rate * Chest xray negative for acute process * Chest CT: Negative for PE * Laboratory data: WBC 8.6. Hemoglobin 14.6. Platelet count 179. INR 2.64. Sodium 136. Potassium 4.7. BUN 20. Creatinine 0.74. Troponin negative 2. ProBNP 647. * Current home cardiac medications include Cardizem 120 mg daily, losartan 25 mg at night, warfarin 5 mg Friday and Friday and 7.5 mg Friday, carvedilol 6.25 mg twice a day, and Crestor 40 mg daily REVIEW OF SYSTEMS: At the time of my exam: CONSTITUTIONAL: Denies fever or chills. HEENT: Denies blurred vision, vision changes, or eye pain. Denies hemoptysis CARDIOVASCULAR: Denies chest pain. Denies orthopnea. Denies PND. Denies palpitations RESPIRATORY: Denies shortness of breath. GASTROINTESTINAL: Denies abdominal pain. Denies nausea or vomiting. HEMATOLOGIC: Denies bleeding disorders. GENITOURINARY: Denies any blood in urine. SKIN: Denies pruitis. Denies rash. PHYSICAL EXAM: VITAL SIGNS: Reviewed. GENERAL: Well-developed in no acute distress. HEENT: Head is normocephalic. Pupils are equal, round. Sclerae anicteric. Mucous membranes of the mouth are moist. Neck supple. No JVD or thyromegaly LUNGS: Respirations even and unlabored. Lungs essentially clear to auscultation bilaterally. HEART: Irregular rate and rhythm. S1 and S2 heard. ABDOMEN: Soft. Nondistended. Nontender. EXTREMITIES: Normal range of motion. No clubbing or cyanosis. Peripheral pulses intact. Trace lower extremity edema NEUROLOGIC: Awake and alert. Oriented x 3. ASSESSMENT: Shortness of breath Acute heart failure, type unknown, echo pending Permanent atrial fibrillation History of unsuccessful cardioversion Hypertension Hyperlipidemia PLAN: Obtain 2-D echo to assess cardiac structure and function Resume home cardiac medications Begin Lasix 40 mg IV daily Daily weights, accurate I&O and monitoring of kidney function Patient to undergo stress echocardiogram today Further recommendations pending patient course Patient to follow-up on an outpatient basis with his primary cable maintainer in [place] Nurse practitioner note has been reviewed by physician. Signing provider agrees with the documented findings, assessment, and plan of care. Past Medical History Past Medical History: Atrial Fibrillation, Diabetes Mellitus, Hypertension History of Any Multi-Drug Resistant Organisms: None Reported Past Surgical History: Cholecystectomy Additional Past Surgical History / Comment(s): Prostate Past Psychological History: No Psychological Hx Reported Smoking Status: Never smoker Past Alcohol Use History: Occasional Past Drug Use History: None Reported - Past Family History Mother Family Medical History: Hypertension Medications and Allergies Home Medications Medication Instructions Recorded Confirmed Type Diltiazem Cd [Cardizem Cd] 120 mg PO DAILY 04/17/18 03/11/22 History Folic Acid 0.4 mg PO HS 04/17/18 03/11/22 History Glimepiride [Amaryl] 4 mg PO BID 04/17/18 03/11/22 History Insulin Detemir (Levemir) [Levemir] 32 unit SQ HS 04/17/18 03/11/22 History Losartan Potassium [Cozaar] 25 mg PO HS 04/17/18 03/11/22 History Warfarin Sodium [Jantoven] 5 mg PO SUMOSA 04/17/18 03/11/22 History metFORMIN HCL [Glucophage] 1,000 mg PO BID 04/17/18 03/11/22 History Docusate [Colace] 100 mg PO DAILY 03/11/22 03/11/22 History Rosuvastatin Calcium 40 mg PO DAILY 03/11/22 03/11/22 History Warfarin [Coumadin] 7.5 mg PO TUWETHFR 03/11/22 03/11/22 History carvediloL [Coreg] 6.25 mg PO BID 03/11/22 03/11/22 History Allergies Allergy/AdvReac Type Severity Reaction Status Date / Time No Known Allergies Allergy Verified 03/11/22 07:02 Physical Exam Vitals: Vital Signs Temp Pulse Resp BP Pulse Ox 03/11/22 07:41 97.6 F 03/11/22 07:12 83 18 140/98 96 03/11/22 06:00 77 16 168/81 96 03/11/22 00:00 83 16 135/83 95 03/10/22 23:00 85 20 153/85 92 L 03/10/22 22:00 76 16 151/87 96 03/10/22 20:34 18 03/10/22 20:16 97.4 F L 84 25 H 157/86 93 L Intake and Output 03/10/22 03/11/22 03/11/22 22:59 06:59 14:59 Other: Weight 113.398 kg Results 03/10/22 22:00 03/10/22 22:00 Cardiac Enzymes 03/10/22 03/10/22 Range/Units 22:00 22:00 AST 22 (17-59) U/L Troponin I <0.012 (0.000-0.034) ng/mL Coagulation 03/10/22 Range/Units 22:00 PT 28.7 H (9.0-12.0) sec APTT 40.6 H (22.0-30.0) sec CBC 03/10/22 Range/Units 22:00 WBC 8.6 (3.8-10.6) k/uL RBC 4.76 (4.30-5.90) m/uL Hgb 14.6 (13.0-17.5) gm/dL Hct 41.9 (39.0-53.0) % Plt Count 179 (150-450) k/uL Comprehensive Metabolic Panel 03/10/22 Range/Units 22:00 Sodium 135 L (137-145) mmol/L Potassium 4.7 (3.5-5.1) mmol/L Chloride 102 (98-107) mmol/L Carbon Dioxide 25 (22-30) mmol/L BUN 20 (9-20) mg/dL Creatinine 0.74 (0.66-1.25) mg/dL Glucose 242 H (74-99) mg/dL Calcium 9.0 (8.4-10.2) mg/dL AST 22 (17-59) U/L ALT 23 (4-49) U/L Alkaline Phosphatase 62 (38-126) U/L Total Protein 7.1 (6.3-8.2) g/dL Albumin 4.4 (3.5-5.0) g/dL Current Medications Generic Name Dose Route Start Last Admin Trade Name Freq PRN Reason Stop Dose Admin Carvedilol 6.25 mg 03/11/22 07:30 03/11/22 07:18 Carvedilol 6.25 Mg Tab PO 6.25 mg AC-BID MARCELINO Administration Diltiazem HCl 120 mg 03/11/22 09:00 Diltiazem Cd 120 Mg Cap.Er.24h PO DAILY MARCELINO Insulin Aspart 0 unit 03/11/22 07:30 03/11/22 07:19 Insulin Aspart (Novolog) 100 Unit/Ml Vial SQ 3 unit ACHS MARCELINO Administration Protocol Insulin Detemir 32 unit 03/11/22 21:00 Insulin Detemir (Levemir) 100 Unit/Ml Syr SQ HS MARCELINO Losartan Potassium 25 mg 03/11/22 21:00 Losartan 25 Mg Tab PO HS MARCELINO Miscellaneous Information 0 each 03/11/22 00:21 Warfarin Per Pharmacy MISCELLANE DIRECTED PRN PER PROTOCOL Naloxone HCl 0.2 mg 03/11/22 00:09 Naloxone 0.4 Mg/Ml 1 Ml Vial IV Q2M PRN Opioid Reversal Intake and Output 03/10/22 03/11/22 03/11/22 22:59 06:59 14:59 Other: Weight 113.398 kg 03/10/22 22:00 03/10/22 22:00
[2022-03-11] MEDS: FUROSEMIDE 10 MG/ML 4 ML VIAL IV SCH (11:24)
[2022-03-11] MEDS: DILTIAZEM CD 120 MG CAP.ER.24H PO SCH (12:15)
--- NOTE | 2022-03-11 12:15 | CA ---
Stress Echo Report Jossue Torres Age: 76 Gender: M : 1945 Exam Date: 03/11/2022 10:06 Exam Location: [facility] Ht (in): 76 Wt (lb): 250 Ordering Physician: Faina Schofield Referring Physician: Nuno Stokes MD Circulation Librarian: VIBHA Technologist Procedure CPT: Indication: sob ICD-9 Codes: Rhythm: Patient History: DIFFICULTY IN BREATHING, HTN, DIABETIC, ELEVATED CHOLESTEROL LEVELS, FAMILY HX OF HEART DISEASE Cardiac Medications: Medications in past 24 hours: Contrast: Stress Results Protocol: Eduardo Total dose(mL): Exercise Duration (min:sec): Max ST Depression (mm): Angina Score: Bland Score: METS: 4.8 Resting HR: 82 Resting BP: 143 / 100 Peak HR: 115 Peak BP: 184 / 83 Max Predicted HR: 145 79 % Max Predicted HR Target HR: 123 Double Product: 00084 Stress Summary: BP Response: Reason for Termination: Cardiac Symptoms: ECG Analysis Resting ECG: Stress ECG: Arrhythmia: Echo Analysis Resting Echo: Peak Echo Analysis: MEASUREMENTS (Male/Female) Normal Values CONCLUSIONS Patient underwent exercise stress echo with a Eduardo protocol treadmill stress test. Patient exercised into Stage 2 for a total of 4 minutes and 13 seconds reaching a total of 4.8 METS. Patient's maximum heart rate was 115 which represented 79 % age- predicted maximum heart rate. Stress EKG portion: At baseline patient's EKG showed Afib with controlled rate, normal axis, no significant ST or T wave abnormalities, poor R- wave progression. At peak exercise, EKG showed no significant change from baseline. Stress echo portion: 2-D echocardiogram was performed in the parasternal long, personal short, apical 2 and apical four-chamber views at rest, peak exercise and in recovery. At baseline, echocardiogram showed left ventricular ejection fraction 50-55% without wall motion abnormalities. With peak exercise, echocardiogram shows improvement in left ventricular ejection fraction, increase contractility, decrease in left ventricular end systolic dimension without wall motion abnormalities consistent with a normal response to exercise. Conclusions: 1. Nondiagnostic test secondary to inability to reach 85% maximum predicted heart rate 2. However at 79% maximum predicted heart rate, normal EKG and echo response to exercise without evidence of inducible ischemia. 3. Limited exercise capacity. Dr. Zheng Del Rosario DO (Electronically Signed) Final Date: 11 March 2022 12:14
[2022-03-11 12:22] LABS: Glucose,Whole Blood 130 mg/dL (70-110)
--- NOTE | 2022-03-11 13:44 | P.PN ---
Subjective Progress Note Date: 03/11/22 Hospital course: Patient is a very pleasant 76-year-old male with a past medical history of chronic atrial fibrillation on anticoagulation with Coumadin, hypertension, hyperlipidemia, and type 2 insulin-dependent diabetes mellitus. He presented to the emergency department with a chief complaint of shortness of breath. Patient reported experiencing shortness of breath at rest and worsening with any exertion and also reported orthopnea. Patient denied having any chest pain, palpitations, or increased in his chronic bilateral lower extremity edema. Patient denies having history of heart failure. Patient underwent full evaluation in the emergency department. CBC unremarkable. CMP revealed therapeutic INR of 2.9. CMP unremarkable with the exception of hyperglycemia with glucose of 242. Troponin negative at less than 0.012 and pro-BMP of 647. Chest x-ray negative for acute cardiopulmonary process. CTA chest negative for acute process showing no evidence of pulmonary embolism and no signs of acute lung disease. EKG showing atrial fibrillation with a controlled ventricular rate of 81 bpm. RC, Covid, influenza a, and influenza B were all negative. Patient admitted under our services with consultation to cardiology. Physical exam: Vital signs reviewed and stable. General: Nontoxic, no distress and appears stated age. Derm: Skin warm and dry, normal coloration for ethnicity. Head: Atraumatic, normocephalic and symmetric. Eyes: EOMs intact, no lid lag, and anicteric sclera Mouth: no lip lesions, mucus membranes moist Cardiovascular: regular rate and rhythm with normal S1S2, no murmur, positive posterior tibial pulses bilaterally, and cap refill < 2 seconds. Lungs: Respirations even, regular, and unlabored on room air. Lungs CTA bilaterally, no rhonchi, no rales, no wheezing, and no accessory muscle usage. Abdominal: soft, nontender to palpation, no guarding, no appreciable organomegaly Ext: ROM intact. No gross muscle atrophy, 2+ pitting bilateral lower extremity edema, no contractures Neuro: Speech clear, face symmetrical and CN II-XII grossly intact with no noted focal neuro deficits Psych: Alert and oriented to person, place, time, and situation. Appropriate and pleasant affect. Assessment and Plan of Care: Acute shortness of breath, unclear etiology likely secondary to heart failure. Orthopnea -Telemetry monitoring -Echocardiogram -Cardiology consulted -Troponin negative at less than 0.0122 draws -ProBNP 647. -Daily weights, monitor I's and O's Chronic Atrial fibrillation -Continue Cardizem, carvedilol, and anticoagulation with Coumadin pharmacy to dose. -INR is currently therapeutic at 2.64. Hypertension -Monitor vital signs and continue daily medication regimen with carvedilol, diltiazem and losartan. Hyperlipidemia -Continue daily medication regimen with rosuvastatin. Diabetes mellitus -Hold metformin in place patient on glycemic protocol with NovoLog sliding scale and continue long-acting Levemir 32 units nightly. CODE STATUS: Full code DVT prophylaxis: Coumadin Discussed with: Patient and RN Anticipated discharge date: 1-[address]: Home A total of 33 minutes was spent on the care of this complex patient more than 50% of the time was spent in counseling and care coordination. I reviewed the documentation as provided by the JERRICA above, who is the original author of this note. I agree with the documented assessment and plan, with the following changes: none Objective - Vital Signs Vital signs: Vital Signs Temp 97.6 F 03/11/22 07:41 Pulse 83 03/11/22 07:12 Resp 18 03/11/22 07:12 BP 140/98 03/11/22 07:12 Pulse Ox 96 03/11/22 07:12 FiO2 Intake & Output 03/10/22 03/11/22 03/11/22 18:59 06:59 18:59 Weight 113.398 kg - Labs CBC & Chem 7: 03/10/22 22:00 03/10/22 22:00 Labs: Abnormal Lab Results - Last 24 Hours (Table) 03/10/22 03/10/22 03/10/22 Range/Units 22:00 22:00 22:09 PT 28.7 H (9.0-12.0) sec INR 2.9 H (<1.2) APTT 40.6 H (22.0-30.0) sec Sodium 135 L (137-145) mmol/L Glucose 242 H (74-99) mg/dL POC Glucose (mg/dL) (70-110) mg/dL Urine Protein 1+ H (Negative) Urine Glucose (UA) 4+ H (Negative) Urine Mucus Rare H (None) /hpf 03/11/22 Range/Units 06:48 PT (9.0-12.0) sec INR (<1.2) APTT (22.0-30.0) sec Sodium (137-145) mmol/L Glucose (74-99) mg/dL POC Glucose (mg/dL) 158 H (70-110) mg/dL Urine Protein (Negative) Urine Glucose (UA) (Negative) Urine Mucus (None) /hpf
[2022-03-11] MEDS: ATORVASTATIN 80 MG TAB PO SCH (15:20)
--- NOTE | 2022-03-11 17:15 | CA ---
Transthoracic Echo Report Name: Jossue Torres Age: 76 Gender: M : 1945 Exam Date: 03/11/2022 08:31 Exam Location: [facility] Ht (in): 76 Wt (lb): 250 Ordering Physician: Sree Taveras MD Attending/Referring Phys: Nuno Stokes MD Candy Decorator Sandhya Pearce RDCS Procedure CPT: Indications: unexplained dyspnea/hypoxia Cardiac Hx: Technical Quality: Fair Contrast 1: Total Dose (mL): Contrast 2: Total Dose (mL): MEASUREMENTS (Male / Female) Normal Values 2D ECHO LV Diastolic Diameter PLAX 5.5 cm 4.2 - 5.9 / 3.9 - 5.3 cm LV Systolic Diameter PLAX 3.2 cm IVS Diastolic Thickness 1.3 cm 0.6 - 1.0 / 0.6 - 0.9 cm LVPW Diastolic Thickness 1.1 cm 0.6 - 1.0 / 0.6 - 0.9 cm LV Relative Wall Thickness 0.4 RV Internal Dim ED PLAX 3.4 cm LA Volume 76.0 cm??? 18 - 58 / 22 - 52 cm??? M-MODE Aortic Root Diameter MM 3.0 cm LA Systolic Diameter MM 4.2 cm LA Ao Ratio MM 1.4 AV Cusp Separation MM 2.3 cm DOPPLER AV Peak Velocity 99.5 cm/s AV Peak Gradient 4.0 mmHg LVOT Peak Velocity 74.8 cm/s LVOT Peak Gradient 2.2 mmHg MV Area PHT 3.2 cm??? Mitral E Point Velocity 89.1 cm/s Mitral A Point Velocity 32.5 cm/s Mitral E to A Ratio 2.7 MV Deceleration Time 237.8 ms MV E' Velocity 9.2 cm/s Mitral E to MV E' Ratio 9.7 TR Peak Velocity 304.8 cm/s TR Peak Gradient 37.2 mmHg Right Ventricular Systolic Press 39.1 mmHg FINDINGS Left Ventricle Mildly increased left ventricular wall thickness. Normal left ventricular systolic function with no obvious regional wall motion abnormalities. Left ventricular ejection fraction is estimated at 50-55 %. Right Ventricle Mild right ventricular dilatation. Mild pulmonary hypertension. Right Atrium Moderate right atrial dilatation. Left Atrium Moderately increased left atrial volume. Mitral Valve Structurally normal mitral valve. Mild mitral annular calcification. Mild mitral regurgitation. Aortic Valve No aortic valve stenosis or regurgitation. Thickened aortic valve without stenosis. Aortic valve sclerosis. Tricuspid Valve Mild tricuspid regurgitation. Pulmonic Valve Trace pulmonic regurgitation. Pericardium No pericardial effusion. Aorta Normal size aortic root and proximal ascending aorta. CONCLUSIONS Mildly increased left ventricular wall thickness Left ventricular ejection fraction 50-55% RVSP 39 Mild mitral regurgitation Mild tricuspid regurgitation No pericardial effusion Previewed by: Dr. Zheng Del Rosario DO (Electronically Signed) Final Date: 11 March 2022 17:14
[2022-03-11 17:40] LABS: Glucose,Whole Blood 256 mg/dL (70-110)
[2022-03-11] MEDS ORDERED: WARFARIN 5 MG TAB PO SCH ×2 (18:00→21:00)
[2022-03-11 20:19] LABS: Glucose,Whole Blood 267 mg/dL (70-110)
[2022-03-11] MEDS ORDERED: LOSARTAN 25 MG TAB PO SCH (21:00)
[2022-03-11] MEDS ORDERED: INSULIN DETEMIR (LEVEMIR) 100 UNIT/ML SYR SQ SCH (21:00)
[2022-03-12 06:22] LABS: Glucose,Whole Blood 136 mg/dL (70-110)
[2022-03-12] MEDS: INSULIN ASPART (NovoLOG) 100 UNIT/ML VIAL SQ SCH ×2 (06:33→12:30)
[2022-03-12] MEDS: carvediloL 6.25 MG TAB PO SCH (06:42)
[2022-03-12 07:22] VITALS: BP 121/73; PULSE 60; RESP 18; TEMP 98
[2022-03-12] MEDS: FUROSEMIDE 10 MG/ML 4 ML VIAL IV SCH (07:57)
[2022-03-12] MEDS: DILTIAZEM CD 120 MG CAP.ER.24H PO SCH (07:57)
[2022-03-12] MEDS: ATORVASTATIN 80 MG TAB PO SCH (07:57)
--- NOTE | 2022-03-12 09:36 | P.PN ---
Subjective Progress Note Date: 03/12/22 HISTORY OF PRESENT ILLNESS: This is a 76-year-old male with a past medical history significant for permanent atrial fibrillation and unsuccessful cardioversion. Patient lives in [place] and is up visiting his family for . He follows with a weir fisher near his hometown. We have been asked to see the patient in consultation for shortness of breath. Patient examined at the bedside. Patient states he has been having shortness of breath over the past few days. He states it was worse when he was laying flat in bed. He states he had dissected in a chair and lean forward to catch his breath. This morning, he states his breathing is stable. He denies having any shortness of breath. He denies any chest pain or pressure. He denies any history of coronary artery disease or congestive heart failure. He does have bilateral lower extremity edema. He reports that he is not always compliant with a low-salt diet at home. * EKG reveals atrial fibrillation with controlled ventricular rate * Chest xray negative for acute process * Chest CT: Negative for PE * Laboratory data: WBC 8.6. Hemoglobin 14.6. Platelet count 179. INR 2.64. Sodium 136. Potassium 4.7. BUN 20. Creatinine 0.74. Troponin negative 2. ProBNP 647. * Current home cardiac medications include Cardizem 120 mg daily, losartan 25 mg at night, warfarin 5 mg Friday and Friday and 7.5 mg Friday, carvedilol 6.25 mg twice a day, and Crestor 40 mg daily 03/12/2022 Patient examined this morning at the bedside. Patient underwent stress echo yesterday. He was not able to reach his target heart rate. However at 79% maximum predicted heart rate, normal EKG and echo response to exercise without evidence of inducible ischemia. Echocardiogram completed revealing ejection fraction 50-55%, mild pulmonary hypertension, mild MR, mild TR. He denies chest pain or pressure. Denies SOB. Vital signs are stable. PHYSICAL EXAM: VITAL SIGNS: Reviewed. GENERAL: Well-developed in no acute distress. HEENT: Head is normocephalic. Pupils are equal, round. Sclerae anicteric. Mucous membranes of the mouth are moist. Neck supple. No JVD or thyromegaly LUNGS: Respirations even and unlabored. Lungs essentially clear to auscultation bilaterally. HEART: Irregular rate and rhythm. S1 and S2 heard. ABDOMEN: Soft. Nondistended. Nontender. EXTREMITIES: Normal range of motion. No clubbing or cyanosis. Peripheral pulses intact. Trace lower extremity edema NEUROLOGIC: Awake and alert. Oriented x 3. ASSESSMENT: Shortness of breath Acute heart failure, with preserved ejection fraction Permanent atrial fibrillation History of unsuccessful cardioversion Hypertension Hyperlipidemia PLAN: Continue current cardiac medications Patient may be discharged home today from a cardiac standpoint He will be discharged on 20mg Lasix daily for 7 days Patient instructed to follow a low sodium diet Patient to follow-up on an outpatient basis with his primary weir fisher in [place] Nurse practitioner note has been reviewed by physician. Signing provider agrees with the documented findings, assessment, and plan of care. Objective - Vital Signs Vital signs: Vital Signs Temp 98 F 03/12/22 07:00 Pulse 60 03/12/22 07:00 Resp 18 03/12/22 08:00 BP 121/73 03/12/22 07:00 Pulse Ox 96 03/12/22 07:00 FiO2 Intake & Output 03/11/22 03/12/22 03/12/22 18:59 06:59 18:59 Intake Total 240 Output Total 1275 1100 Balance -1275 -1100 240 Weight 108.05 kg 106.396 kg Intake: Oral 240 Output: Urine 1275 1100 Other: Voiding Method Toilet Toilet Toilet - Labs CBC & Chem 7: 03/10/22 22:00 03/10/22 22:00 Labs: Abnormal Lab Results - Last 24 Hours (Table) 03/11/22 03/11/22 03/11/22 Range/Units 06:19 12:19 17:34 PT 28.7 H (9.9-11.9) sec INR 2.64 H (0.90-1.11) POC Glucose (mg/dL) 130 H 256 H (70-110) mg/dL 03/11/22 03/12/22 Range/Units 20:09 06:20 PT (9.9-11.9) sec INR (0.90-1.11) POC Glucose (mg/dL) 267 H 136 H (70-110) mg/dL
[2022-03-12 09:41] LABS: Basophils # (A) 0.02 X 10*3/uL (0.00-0.10); Basophils % (A) 0.3 %; Eosinophils # (A) 0.16 X 10*3/uL (0.04-0.35); Eosinophils % (A) 2.1 %; HCT 42.9 % (39.6-50.0); HGB 14.2 g/dL (13.0-17.0); Immature Grans, Automated 0.3 %; Lymphocytes # (A) 1.73 X 10*3/uL (0.90-5.00); Lymphocytes % (A) 22.8 %; MCH 29.6 pg (27.0-32.0); MCHC 33.1 g/dL (32.0-37.0); MCV 89.4 fL (80.0-97.0); Mean Platelet Volume 11.4 fL (9.5-12.2); Monocytes % (A) 14.5 %; NRBC Per 100 WBC 0 /100 WBCS (0.0-0.0); Neutrophils # (A) 4.57 X 10*3/uL (1.80-7.70); Platelet Count 192 X 10*3/uL (140-440); RDW 14.3 % (11.5-14.5)
[2022-03-12 10:19] LABS: Anion Gap 12.6 mmol/L (10.00-18.00); BUN/Creat Ratio 18.5 Ratio (12.00-20.00); Blood Urea Nitrogen 18.5 mg/dL (9.0-27.0); Calcium 9.2 mg/dL (8.7-10.3); Carbon Dioxide 28.4 mmol/L (20.0-27.5); Non-African American GFR(CKD) 73.3 (60.0-200.0); Potassium 4.6 mmol/L (3.5-5.5)
[2022-03-12 10:44] LABS: INR 2.19 (0.90-1.11)
--- NOTE | 2022-03-12 10:52 | P.DS ---
Providers Date of admission: 03/11/22 00:09 Expected date of discharge: 03/12/22 Attending physician: Jerson Chowdary MD Consults: 03/11/22 00:09 Consult Physician Routine Consulting Provider: [facility] Consult Reason/Comments: unexplained hypoxia, concern for valvular pathology. echo pending Do you want consulting provider notified?: Yes Primary care physician: Physician Nonstaff Hospital Course: Discharge Diagnosis: Acute Diastolic heart failure with EF 50-55%. Patient underwent IV diuresis in the hospital and being discharged home on Lasix 20 mg daily for the next 7 days and instructed to follow a heart healthy low-sodium diet.. Orthopnea, secondary to above Chronic Atrial fibrillation. Continue Cardizem, carvedilol, and anticoagulation with Coumadin. -INR is currently therapeutic at 2.19 upon discharge. Hypertension. Monitor vital signs and continue daily medication regimen with carvedilol, diltiazem and losartan. Hyperlipidemia. Continue daily medication regimen with rosuvastatin. Diabetes mellitus. Continue metformin, glimepiride, and Levemir. Follow heart healthy and carb consistent diet. Hospital Course: Patient is a very pleasant 76-year-old male with a past medical history of chronic atrial fibrillation on anticoagulation with Coumadin, hypertension, hyperlipidemia, and type 2 insulin-dependent diabetes mellitus. He presented to the emergency department with a chief complaint of shortness of breath. Patient reported experiencing shortness of breath at rest and worsening with any exertion and also reported orthopnea. Patient denied having any chest pain, palpitations, or increased in his chronic bilateral lower extremity edema. Pat ient denies having history of heart failure. Patient underwent full evaluation in the emergency department. CBC unremarkable. CMP revealed therapeutic INR of 2.9. CMP unremarkable with the exception of hyperglycemia with glucose of 242. Troponin negative at less than 0.012 and pro-BMP of 647. Chest x-ray negative for acute cardiopulmonary process. CTA chest negative for acute process showing no evidence of pulmonary embolism and no signs of acute lung disease. EKG showing atrial fibrillation with a controlled ventricular rate of 81 bpm. RC, Covid, influenza a, and influenza B were all negative. Patient was admitted under our services with consultation to cardiology. He was started on IV diuresis with Lasix. Echocardiogram was completed revealing an EF of 50-55% with mild mitral and tricuspid regurgitation. Patient progressively showed improvement throughout hospitalization and currently reports being free from any chest pain or discomfort, shortness of breath at rest, orthopnea, and denied having any shortness of breath with exertion. Patient is medically stable at this time in stable for discharge home. Patient being discharged home on Lasix 20 mg daily for the next 7 days and to follow up with PCP in 1-2 days and cardiology in 1 week. Physical exam: Vital signs reviewed and stable. General: Nontoxic, no distress and appears stated age. Derm: Skin warm and dry, normal coloration for ethnicity. Head: Atraumatic, normocephalic and symmetric. Eyes: EOMs intact, no lid lag, and anicteric sclera Mouth: no lip lesions, mucus membranes moist Cardiovascular: regular rate and rhythm with normal S1S2, no murmur, positive posterior tibial pulses bilaterally, and cap refill < 2 seconds. Lungs: Respirations even, regular, and unlabored on room air. Lungs CTA bilaterally, no rhonchi, no rales, no wheezing, and no accessory muscle usage. Abdominal: soft, nontender to palpation, no guarding, no appreciable organom egaly Ext: ROM intact. No gross muscle atrophy, 2+ pitting bilateral lower extremity edema, no contractures Neuro: Speech clear, face symmetrical and CN II-XII grossly intact with no noted focal neuro deficits Psych: Alert and oriented to person, place, time, and situation. Appropriate and pleasant affect. A total of 35 minutes of time were spent preparing this complex discharge summary. Pt was discharged on 03/12/22 at 10:51 AM. I reviewed the documentation as provided by the JERRICA above, who is the original author of this note. I agree with the documented assessment and plan, with the following changes: none Patient Condition at Discharge: Stable Plan - Discharge Summary New Discharge Prescriptions: New Furosemide [Lasix] 20 mg PO DAILY #7 tab Continue Losartan Potassium [Cozaar] 25 mg PO HS Warfarin Sodium [Jantoven] 5 mg PO SUMOSA Folic Acid 0.4 mg PO HS Diltiazem Cd [Cardizem CD] 120 mg PO DAILY metFORMIN HCL [Glucophage] 1,000 mg PO BID Glimepiride [Amaryl] 4 mg PO BID Insulin Detemir (Levemir) [Levemir] 32 unit SQ HS carvediloL [Coreg] 6.25 mg PO BID Docusate [Colace] 100 mg PO DAILY Warfarin [Coumadin] 7.5 mg PO TUWETH Rosuvastatin Calcium 40 mg PO DAILY Discharge Medication List Diltiazem Cd [Cardizem CD] 120 mg PO DAILY 04/17/18 [History] Folic Acid 0.4 mg PO HS 04/17/18 [History] Glimepiride [Amaryl] 4 mg PO BID 04/17/18 [History] Insulin Detemir (Levemir) [Levemir] 32 unit SQ HS 04/17/18 [History] Losartan Potassium [Cozaar] 25 mg PO HS 04/17/18 [History] Warfarin Sodium [Jantoven] 5 mg PO SUMOSA 04/17/18 [History] metFORMIN HCL [Glucophage] 1,000 mg PO BID 04/17/18 [History] Docusate [Colace] 100 mg PO DAILY 03/11/22 [History] Rosuvastatin Calcium 40 mg PO DAILY 03/11/22 [History] Warfarin [Coumadin] 7.5 mg PO TUWETHFR 03/11/22 [History] carvediloL [Coreg] 6.25 mg PO BID 03/11/22 [History] Furosemide [Lasix] 20 mg PO DAILY #7 tab 03/12/22 [Rx] Follow up Appointment(s)/Referral(s): Zheng Del Rosario DO [STAFF PHYSICIAN] - 1 Week Jeff Wilson MD [REFERRING] - 1-2 Days Patient Instructions/Handouts: Heart Failure (DC), Low-Sodium Diet (DC) Activity/Diet/Wound Care/Special Instructions: Activity: As tolerated. Take breaks as needed. Diet: Heart healthy and carb consistent diet. Avoid salts, or foods with hidden salts such as canned or boxed foods and frozen dinners. Extra salt makes your heart work harder and traps the fluid in your body for longer. Special Instructions: Take all of your medications as directed and remember to keep all of your doctor's appointments and follow-up as needed. Please follow-up with your primary care doctor and your red leader upon r eturning to [place]. Thank you for allowing us to participate in your care, it was truly a pleasure having you for our patient!!! RETURN TO ER FOR WORSENING PROBLEMS OR CONCERNS. Discharge Disposition: HOME SELF-CARE
[2022-03-12 12:07] LABS: Glucose,Whole Blood 275 mg/dL (70-110)
[2022-03-12] MEDS ORDERED: WARFARIN 7.5 MG TAB PO SCH (18:00)
== END 2022-03-12 12:36 | disposition home or self-care (01) ==
LOC: EC 20:01 → 6NMEDSUR 03-11 00:09
PROVIDERS: ADMIT Internal Medicine; ATTEND Internal Medicine
DX: I11.0 Hypertensive heart disease with heart failure (principal); I50.31 Acute diastolic (congestive) heart failure; E11.65 Type 2 diabetes mellitus with hyperglycemia; I48.92 Unspecified atrial flutter; I48.21 Permanent atrial fibrillation; E78.5 Hyperlipidemia, unspecified; I27.20 Pulmonary hypertension, unspecified; I08.3 Combined rheumatic disorders of mitral, aortic and tricuspid valves; I37.1 Nonrheumatic pulmonary valve insufficiency; Z79.899 Other long term (current) drug therapy; Z79.84 Long term (current) use of oral hypoglycemic drugs; Z79.4 Long term (current) use of insulin; Z79.01 Long term (current) use of anticoagulants; Z90.49 Acquired absence of other specified parts of digestive tract; Z20.822 Contact with and (suspected) exposure to COVID-19; Z82.49 Family history of ischemic heart disease and other diseases of the circulatory system
CPT/HCPCS: 96376; 96374; 99285; 36415; 93005; 93306; 93351; 83880; 80053; 80048; 83605; 83735; 84484 ×2; 85025 ×2; 85610 ×3; 85730; 81001; 87636; 71046; 71275; G0378 ×2; J1940 ×2; Q9967

== ENCOUNTER 2023-02-08 01:47 | Observation (INO) | payer MEDICARE ==
[2023-02-08 02:18] VITALS: TEMP 97.6
--- NOTE | 2023-02-08 03:27 | ED ---
SOB HPI - General Chief Complaint: Shortness of Breath Stated Complaint: CHF SOB Time Seen by Provider: 02/08/23 02:00 Source: patient Mode of arrival: ambulatory Limitations: no limitations - History of Present Illness Initial Comments: 7-year-old male past history of A. fib on Coumadin, congestive heart failure, diabetes who presents emergency department reporting shortness of breath. States that he has had shortness of breath for the past 2 days. He cannot lay flat to sleep. Admits to increased swelling in his lower extremity with his left being worse than his right. He does take Lasix 40 mg daily. Denies any missed doses. States that he continues to have worsening shortness of breath. He has been hospitalized previously for CHF exacerbation. He denies history of DVT or PE. Has been compliant with his Coumadin without any missed doses. No fevers, chills or cough. No sick contacts and no history of asthma or COPD. He denies any chest pain. No other alleviating, precipitating or modifying factors - Related Data Home Medications Medication Instructions Recorded Confirmed Diltiazem Cd [Cardizem CD] 120 mg PO DAILY 04/17/18 03/11/22 Folic Acid 0.4 mg PO HS 04/17/18 03/11/22 Glimepiride [Amaryl] 4 mg PO BID 04/17/18 03/11/22 Insulin Detemir (Levemir) [Levemir] 32 unit SQ HS 04/17/18 03/11/22 Losartan Potassium [Cozaar] 25 mg PO HS 04/17/18 03/11/22 Warfarin Sodium [Jantoven] 5 mg PO SUMOSA 04/17/18 03/11/22 metFORMIN HCL [Glucophage] 1,000 mg PO BID 04/17/18 03/11/22 Docusate [Colace] 100 mg PO DAILY 03/11/22 03/11/22 Rosuvastatin Calcium 40 mg PO DAILY 03/11/22 03/11/22 Warfarin [Coumadin] 7.5 mg PO TUWETHFR 03/11/22 03/11/22 carvediloL [Coreg] 6.25 mg PO BID 03/11/22 03/11/22 Previous Rx's Medication Instructions Recorded Furosemide [Lasix] 20 mg PO DAILY #7 tab 03/12/22 Allergies Allergy/AdvReac Type Severity Reaction Status Date / Time No Known Allergies Allergy Verified 02/08/23 01:57 Review of Systems ROS Statement: Those systems with pertinent positive or pertinent negative responses have been documented in the HPI. ROS Other: All systems not noted in ROS Statement are negative. Past Medical History Past Medical History: Atrial Fibrillation, Heart Failure, Diabetes Mellitus, Hypertension History of Any Multi-Drug Resistant Organisms: None Reported Past Surgical History: Cholecystectomy Additional Past Surgical History / Comment(s): Prostate Past Psychological History: No Psychological Hx Reported Smoking Status: Never smoker Past Alcohol Use History: Occasional Past Drug Use History: None Reported - Past Family History Mother Family Medical History: Hypertension General Exam Limitations: no limitations General appearance: alert, in no apparent distress Head exam: Present: atraumatic, normocephalic, normal inspection Eye exam: Present: normal appearance, PERRL, EOMI. Absent: scleral icterus, conjunctival injection, periorbital swelling ENT exam: Present: normal exam, mucous membranes moist Neck exam: Present: normal inspection. Absent: tenderness, meningismus, lymphadenopathy Respiratory exam: Present: decreased breath sounds. Absent: respiratory distress, wheezes, rhonchi, stridor Cardiovascular Exam: Present: regular rate, normal rhythm, normal heart sounds. Absent: systolic murmur, diastolic murmur, rubs, gallop, clicks GI/Abdominal exam: Present: soft, normal bowel sounds. Absent: distended, tenderness, guarding, rebound, rigid Extremities exam: Present: full ROM, normal capillary refill, pedal edema. Absent: tenderness, joint swelling, calf tenderness Back exam: Present: normal inspection Neurological exam: Present: alert, oriented X3, CN II-XII intact Psychiatric exam: Present: normal affect, normal mood Skin exam: Present: warm, dry, intact, normal color. Absent: rash Course Vital Signs 02/08/23 02/08/23 02/08/23 01:57 02:43 03:35 Temperature 97.6 F Pulse Rate 85 77 Respiratory 24 22 20 Rate Blood Pressure 155/82 128/82 O2 Sat by Pulse 96 95 Oximetry 02/08/23 02/08/23 02/08/23 04:00 05:00 06:00 Temperature Pulse Rate 82 90 79 Respiratory 20 20 18 Rate Blood Pressure 133/90 137/84 150/90 O2 Sat by Pulse 95 95 95 Oximetry 02/08/23 08:12 Temperature Pulse Rate 96 Respiratory 18 Rate Blood Pressure 142/73 O2 Sat by Pulse 96 Oximetry Medical Decision Making - Medical Decision Making Was pt. sent in by a medical professional or institution (DEWAYNE Pereyra, STITCHING MACHINE SETTER, urgent care, hospital, or jail...) When possible be specific @ -No Did you speak to anyone other than the patient for history (EMS, parent, family, police, friend...)? What history was obtained from this source @ -Spoke with the patient's son Did you review nursing and triage notes (agree or disagree)? Why? @ -I reviewed and agree with nursing and triage notes Were old charts reviewed (outside hosp., previous admission, EMS record, old EKG, old radiological studies, urgent care reports/EKG's, jail records)? Report findings @ -Reviewed patient's old laboratory studies. BNP has been elevated in the past in the 600s Differential Diagnosis (chest pain, altered mental status, abdominal pain women, abdominal pain men, vaginal bleeding, weakness, fever, dyspnea, syncope, headache, dizziness, GI bleed, back pain, seizure, CVA, palpatations, mental health, musculoskeletal)? @ -Differential Dyspnea: Coronary syndrome, arrhythmia, tamponade, asthma, COPD, pulmonary embolism, pn eumonia, pneumothorax, pulmonary effusion, anaphylaxis, diabetic ketoacidosis, flailed chest, pulmonary contusion, diaphragmatic rupture, anemia, neuromuscular, this is not meant to be an all-inclusive list. EKG interpreted by me (3pts min.). @ -Yes and demonstrates A. fib with rate of 79. QRS 90. QTC of 404. No acute ST segment elevations or depressions X-rays interpreted by me (1pt min.). @ -Yes and demonstrates no acute process CT interpreted by me (1pt min.). @ -None done U/S interpreted by me (1pt. min.). @ -None done What testing was considered but not performed or refused? (CT, X-rays, U/S, labs)? Why? @ -None What meds were considered but not given or refused? Why? @ -None Did you discuss the management of the patient with other professionals (professionals i.e. DEWAYNE Pereyra, STITCHING MACHINE SETTER, lab, RT, psych nurse, social media intern, inspector firearms, teacher, ship officer, immigration case manager)? Give summary @ -Spoke with Andrés from [facility] to agreed to admit the patient Was smoking cessation discussed for >3mins.? @ -No Was critical care preformed (if so, how long)? @ -No Were there social determinants of health that impacted care today? How? (Homeles sness, low income, unemployed, alcoholism, drug addiction, transportation, low edu. Level, literacy, decrease access to med. care, usp, rehab)? @ -No Was there de-escalation of care discussed even if they declined (Discuss DNR or withdrawal of care, Hospice)? DNR status @ -No What co-morbidities impacted this encounter? (DM, HTN, Smoking, COPD, CAD, Cancer, CVA, ARF, Chemo, Hep., AIDS, mental health diagnosis, sleep apnea, morbid obesity)? @ -CHF Was patient admitted / discharged? Hospital course, mention meds given and route, prescriptions, significant lab abnormalities, going to OR and other pertinent info. @ -Upon arrival patient was placed into room 7. There are history and physical exam was performed. IV is established and laboratory studies are conducted. Chest x-ray was performed. Patient was given 60 mg of Lasix. Due to his reported shortness of breath I did recommend admission for diuresis. Patient was agreeable to this. Spoke with Andrés from [facility] who agreed to admit the patient. Undiagnosed new problem with uncertain prognosis? @ -No Drug Therapy requiring intensive monitoring for toxicity (Heparin, Nitro, Insulin, Cardizem)? @ -No Were any procedures done? @ -No Diagnosis/symptom? @ -Acute orthopnea, suspected CHF exacerbation Acute, or Chronic, or Acute on Chronic? @ -Acute on chronic Uncomplicated (without systemic symptoms) or Complicated (systemic symptoms)? @ -Complicated Side effects of treatment? @ -No Exacerbation, Progression, or Severe Exacerbation? @ -Yes Poses a threat to life or bodily function? How? (Chest pain, [place], [place], pneumonia, PE, COPD, DKA, ARF, appy, cholecystitis, CVA, Diverticulitis, Homicidal, Suicidal, threat to staff... and all critical care pts) @ -No - Lab Data Result diagrams: 02/08/23 02:54 02/08/23 02:58 Lab Results 10/21/23 10/21/23 10/21/23 Range/Units 02:54 02:54 02:54 WBC 7.1 (3.8-10.6) k/uL RBC 4.93 (4.30-5.90) m/uL Hgb 14.6 (13.0-17.5) gm/dL Hct 44.4 (39.0-53.0) % MCV 90.1 (80.0-100.0) fL MCH 29.7 (25.0-35.0) pg MCHC 33.0 (31.0-37.0) g/dL RDW 14.5 (11.5-15.5) % Plt Count 168 (150-450) k/uL MPV 8.5 Neutrophils % 60 % Lymphocytes % 27 % Monocytes % 9 % Eosinophils % 2 % Basophils % 0 % Neutrophils # 4.2 (1.3-7.7) k/uL Lymphocytes # 1.9 (1.0-4.8) k/uL Monocytes # 0.6 (0-1.0) k/uL Eosinophils # 0.1 (0-0.7) k/uL Basophils # 0.0 (0-0.2) k/uL PT 29.8 H (10.0-12.5) sec INR 3.0 H (<1.2) APTT 39.7 H (22.0-30.0) sec Sodium (137-145) mmol/L Potassium (3.5-5.1) mmol/L Chloride (98-107) mmol/L Carbon Dioxide (22-30) mmol/L Anion Gap mmol/L BUN (9-20) mg/dL Creatinine (0.66-1.25) mg/dL Est GFR (CKD-EPI)AfAm (>60 ml/min/1.73 sqM) Est GFR (CKD-EPI)NonAf (>60 ml/min/1.73 sqM) Glucose (74-99) mg/dL Plasma Lactic Acid Stephan 1.3 (0.7-2.0) mmol/L Calcium (8.4-10.2) mg/dL Total Bilirubin (0.2-1.3) mg/dL AST (17-59) U/L ALT (4-49) U/L Alkaline Phosphatase (38-126) U/L Troponin I (0.000-0.034) ng/mL NT-Pro-B Natriuret Pep pg/mL Total Protein (6.3-8.2) g/dL Albumin (3.5-5.0) g/dL 02/08/23 02/08/23 Range/Units 02:54 02:58 WBC (3.8-10.6) k/uL RBC (4.30-5.90) m/uL Hgb (13.0-17.5) gm/dL Hct (39.0-53.0) % MCV (80.0-100.0) fL MCH (25.0-35.0) pg MCHC (31.0-37.0) g/dL RDW (11.5-15.5) % Plt Count (150-450) k/uL MPV Neutrophils % % Lymphocytes % % Monocytes % % Eosinophils % % Basophils % % Neutrophils # (1.3-7.7) k/uL Lymphocytes # (1.0-4.8) k/uL Monocytes # (0-1.0) k/uL Eosinophils # (0-0.7) k/uL Basophils # (0-0.2) k/uL PT (10.0-12.5) sec INR (<1.2) APTT (22.0-30.0) sec Sodium 137 (137-145) mmol/L Potassium 4.9 (3.5-5.1) mmol/L Chloride 100 (98-107) mmol/L Carbon Dioxide 24 (22-30) mmol/L Anion Gap 13 mmol/L BUN 19 (9-20) mg/dL Creatinine 0.72 (0.66-1.25) mg/dL Est GFR (CKD-EPI)AfAm >90 (>60 ml/min/1.73 sqM) Est GFR (CKD-EPI)NonAf >90 (>60 ml/min/1.73 sqM) Glucose 195 H (74-99) mg/dL Plasma Lactic Acid Stephan (0.7-2.0) mmol/L Calcium 9.2 (8.4-10.2) mg/dL Total Bilirubin 1.2 (0.2-1.3) mg/dL AST 29 (17-59) U/L ALT 21 (4-49) U/L Alkaline Phosphatase 52 (38-126) U/L Troponin I <0.012 (0.000-0.034) ng/mL NT-Pro-B Natriuret Pep 576 pg/mL Total Protein 7.5 (6.3-8.2) g/dL Albumin 4.3 (3.5-5.0) g/dL Disposition Clinical Impression: Exertional dyspnea, Congestive heart failure Disposition: ADMITTED IP TO THIS [facility] Condition: Serious Is patient prescribed a controlled substance at d/c from ED?: No Time of Disposition: 05:34 Decision to Admit Reason: Admit from EC Decision Date: 02/08/23 Decision Time: 05:34
[2023-02-08 03:44] LABS: Basophils % (A) 0 %; Eosinophils # (A) 0.1 k/uL (0-0.7); Eosinophils % (A) 2 %; HCT 44.4 % (39.0-53.0); HGB 14.6 gm/dL (13.0-17.5); Lymphocytes # (A) 1.9 k/uL (1.0-4.8); Lymphocytes % (A) 27 %; MCH 29.7 pg (25.0-35.0); MCV 90.1 fL (80.0-100.0); Mean Platelet Volume 8.5; Monocytes # (A) 0.6 k/uL (0-1.0); Monocytes % (A) 9 %; Neutrophils # (A) 4.2 k/uL (1.3-7.7); Neutrophils % (A) 60 %; Platelet Count 168 k/uL (150-450); RBC 4.93 m/uL (4.30-5.90); RDW 14.5 % (11.5-15.5); WBC 7.1 k/uL (3.8-10.6)
[2023-02-08 03:52] LABS: Partial Thromboplastin Time 39.7 sec (22.0-30.0); Prothrombin Time 29.8 sec (10.0-12.5)
[2023-02-08 04:15] LABS: ALT 21 U/L (4-49); AST 29 U/L (17-59); African American GFR (CKD) >90 (>60 ml/min/1.73 sqM); Albumin 4.3 g/dL (3.5-5.0); Alkaline Phosphatase 52 U/L (38-126); Anion Gap 13 mmol/L; Blood Urea Nitrogen 19 mg/dL (9-20); Calcium 9.2 mg/dL (8.4-10.2); Carbon Dioxide 24 mmol/L (22-30); Chloride 100 mmol/L (98-107); Glucose 195 mg/dL (74-99); Non-African American GFR(CKD) >90 (>60 ml/min/1.73 sqM); Potassium 4.9 mmol/L (3.5-5.1); Sodium 137 mmol/L (137-145); Total Bilirubin 1.2 mg/dL (0.2-1.3); Total Protein 7.5 g/dL (6.3-8.2)
[2023-02-08 04:23] LABS: NT-Pro-B-Type Natriuretic Pept 576 pg/mL
[2023-02-08] MEDS ORDERED: FUROSEMIDE 10 MG/ML 10 ML VIAL IV STA (05:34)
[2023-02-08] MEDS ORDERED: NALOXONE 0.4 MG/ML 1 ML VIAL IV PRN (05:34)
[2023-02-08 06:15] VITALS: RESP 18
--- NOTE | 2023-02-08 06:16 | XR ---
EXAM: XR Chest, 2 Views CLINICAL HISTORY: ITS.REASON XR Reason: difficulty breathing TECHNIQUE: Frontal and lateral views of the chest. COMPARISON: No relevant prior studies available. FINDINGS: Lungs: Unremarkable. No consolidation. Pleural space: Unremarkable. No pneumothorax. Heart: Unremarkable. No cardiomegaly. Mediastinum: Unremarkable. Bones/joints: Degenerative changes seen in the spine and shoulders. IMPRESSION: No acute findings seen within the chest.
[2023-02-08 08:23] VITALS: BP 142/73; PULSE 96
--- NOTE | 2023-02-08 09:45 | P.DS ---
Providers Date of admission: 02/08/23 05:34 Attending physician: Munir Nix Primary care physician: Stated None Hospital Course: Patient is a pleasant 77-year-old male with known history of atrial fibrillation on Coumadin therapy come Coumadin with INR of for 3 came in with complaints of shortness of breath and believed the patient was having heart failure exacerbation patient had a normal ejection fraction the past, no diastolic dysfunction no valve abnormalities. Patient denied any orthopnea although this history of orthopnea paroxysmal nocturnal dyspnea is not clear as patient doesn't lay flat usually. Patient had a normal BNP of around 500 chest x-ray did not show any infiltrate. Patient does have some swelling in bilateral both legs left more so than right. Patient denied any previous history of DVT or PE and again patient's INR is about 3. Patient is feeling better. Patient received IV Lasix in ER. Denied any history of COPD never smoked REVIEW OF SYSTEMS: CONSTITUTIONAL: No fever, no malaise, no fatigue. HEENT: No recent visual problems or hearing problems. Denied any sore throat. CARDIOVASCULAR: No chest pain, orthopnea, PND, no palpitations, no syncope. PULMONARY: , no cough, no hemoptysis. GASTROINTESTINAL: No diarrhea, no nausea, no vomiting, no abdominal pain. NEUROLOGICAL: No headaches, no weakness, no numbness. HEMATOLOGICAL: Denies any bleeding or petechiae. GENITOURINARY: Denies any burning micturition, frequency, or urgency. MUSCULOSKELETAL/RHEUMATOLOGICAL: Denies any joint pain, swelling, or any muscle pain. ENDOCRINE: Denies any polyuria or polydipsia. The rest of the 14-point review of systems is negative. PHYSICAL EXAMINATION: GENERAL: The patient is alert and oriented x3, not in any acute distress. Well developed, well nourished. HEENT: Pupils are round and equally reacting to light. EOMI. No scleral icterus. No conjunctival pallor. Normocephalic, atraumatic. No pharyngeal erythema. No thyromegaly. CARDIOVASCULAR: S1 and S2 present. No murmurs, rubs, or gallops. PULMONARY: Chest is clear to auscultation, no wheezing or crackles. ABDOMEN: Soft, nontender, nondistended, normoactive bowel sounds. No palpable organomegaly. MUSCULOSKELETAL: No joint swelling or deformity. EXTREMITIES: No cyanosis, clubbing, mild peripheral edema more on the left than right NEUROLOGICAL: Gross neurological examination did not reveal any focal deficits. SKIN: No rashes. Assessment and plan -Shortness of breath: Patient has chronic A. fib may be related to his A. fib presently rate controlled at this time patient is on Coumadin which will be resumed patient is septic INR. My suspicion is low for CHF. Despite of the INR being 3 I do have a concern for pulmonary embolism because of which I'll order a d-dimer which we'll rule out both the peripheral DVT as well as pulmonary embolism. If that is negative patient will be discharged today. -History of hemorrhoids: Patient was advised not to get constipated uses stool softeners if needed patient denied any symptoms at this time patient denied any lower GI bleed at this time -Type 2 diabetes mellitus next -Hypertension Patient will resume on home medications for these. Patient will be discharged if d-dimer is negative d-dimer is positive we'll obtain a computed tomography scan to rule out pulmonary embolism and a Doppler of left lower extremity to rule out any DVT Patient Condition at Discharge: Serious Plan - Discharge Summary New Discharge Prescriptions: Continue Losartan Potassium [Cozaar] 25 mg PO HS Warfarin Sodium [Jantoven] 5 mg PO SUMOSA Folic Acid 0.4 mg PO HS Diltiazem Cd [Cardizem CD] 120 mg PO DAILY metFORMIN HCL [Glucophage] 1,000 mg PO BID Glimepiride [Amaryl] 4 mg PO BID Insulin Detemir (Levemir) [Levemir] 32 unit SQ HS carvediloL [Coreg] 6.25 mg PO BID Docusate [Colace] 100 mg PO DAILY Warfarin [Coumadin] 7.5 mg PO TUWETHFR Rosuvastatin Calcium 40 mg PO DAILY Furosemide [Lasix] 20 mg PO DAILY #7 tab Discharge Medication List Diltiazem Cd [Cardizem CD] 120 mg PO DAILY 04/17/18 [History] Folic Acid 0.4 mg PO HS 04/17/18 [History] Glimepiride [Amaryl] 4 mg PO BID 04/17/18 [History] Insulin Detemir (Levemir) [Levemir] 32 unit SQ HS 04/17/18 [History] Losartan Potassium [Cozaar] 25 mg PO HS 04/17/18 [History] Warfarin Sodium [Jantoven] 5 mg PO SUMOSA 04/17/18 [History] metFORMIN HCL [Glucophage] 1,000 mg PO BID 04/17/18 [History] Docusate [Colace] 100 mg PO DAILY 03/11/22 [History] Rosuvastatin Calcium 40 mg PO DAILY 03/11/22 [History] Warfarin [Coumadin] 7.5 mg PO TUWETHFR 03/11/22 [History] carvediloL [Coreg] 6.25 mg PO BID 03/11/22 [History] Furosemide [Lasix] 20 mg PO DAILY #7 tab 03/12/22 [Rx] Follow up Appointment(s)/Referral(s): None,Stated [Primary Care Provider] - 3 Days
--- NOTE | 2023-02-08 09:45 | P.HPIM ---
History of Present Illness Patient is a pleasant 77-year-old male with known history of atrial fibrillation on Coumadin therapy come Coumadin with INR of for 3 came in with complaints of shortness of breath and believed the patient was having heart failure exa cerbation patient had a normal ejection fraction the past, no diastolic dysfunction no valve abnormalities. Patient denied any orthopnea although this history of orthopnea paroxysmal nocturnal dyspnea is not clear as patient doesn't lay flat usually. Patient had a normal BNP of around 500 chest x-ray did not show any infiltrate. Patient does have some swelling in bilateral both legs left more so than right. Patient denied any previous history of DVT or PE and again patient's INR is about 3. Patient is feeling better. Patient received IV Lasix in ER. Denied any history of COPD never smoked REVIEW OF SYSTEMS: CONSTITUTIONAL: No fever, no malaise, no fatigue. HEENT: No recent visual problems or hearing problems. Denied any sore throat. CARDIOVASCULAR: No chest pain, orthopnea, PND, no palpitations, no syncope. PULMONARY: , no cough, no hemoptysis. GASTROINTESTINAL: No diarrhea, no nausea, no vomiting, no abdominal pain. NEUROLOGICAL: No headaches, no weakness, no numbness. HEMATOLOGICAL: Denies any bleeding or petechiae. GENITOURINARY: Denies any burning micturition, frequency, or urgency. MUSCULOSKELETAL/RHEUMATOLOGICAL: Denies any joint pain, swelling, or any muscle pain. ENDOCRINE: Denies any polyuria or polydipsia. The rest of the 14-point review of systems is negative. PHYSICAL EXAMINATION: GENERAL: The patient is alert and oriented x3, not in any acute distress. Well developed, well nourished. HEENT: Pupils are round and equally reacting to light. EOMI. No scleral icterus. No conjunctival pallor. Normocephalic, atraumatic. No pharyngeal erythema. No thyromegaly. CARDIOVASCULAR: S1 and S2 present. No murmurs, rubs, or gallops. PULMONARY: Chest is clear to auscultation, no wheezing or crackles. ABDOMEN: Soft, nontender, nondistended, normoactive bowel sounds. No palpable organomegaly. MUSCULOSKELETAL: No joint swelling or deformity. EXTREMITIES: No cyanosis, clubbing, mild peripheral edema more on the left than right NEUROLOGICAL: Gross neurological examination did not reveal any focal deficits. SKIN: No rashes. Assessment and plan -Shortness of breath: Patient has chronic A. fib may be related to his A. fib presently rate controlled at this time patient is on Coumadin which will be resumed patient is septic INR. My suspicion is low for CHF. Despite of the INR being 3 I do have a concern for pulmonary embolism because of which I'll order a d-dimer which we'll rule out both the peripheral DVT as well as pulmonary emboli sm. If that is negative patient will be discharged today. -History of hemorrhoids: Patient was advised not to get constipated uses stool softeners if needed patient denied any symptoms at this time patient denied any lower GI bleed at this time -Type 2 diabetes mellitus next -Hypertension Patient will resume on home medications for these. DVT prophylaxis: Patient is on anti-correlation as mentioned above Past Medical History Past Medical History: Atrial Fibrillation, Heart Failure, Diabetes Mellitus, Hypertension History of Any Multi-Drug Resistant Organisms: None Reported Past Surgical History: Cholecystectomy Additional Past Surgical History / Comment(s): Prostate Past Psychological History: No Psychological Hx Reported Smoking Status: Never smoker Past Alcohol Use History: Occasional Past Drug Use History: None Reported - Past Family History Mother Family Medical History: Hypertension Medications and Allergies Home Medications Medication Instructions Recorded Confirmed Type Diltiazem Cd [Cardizem CD] 120 mg PO DAILY 04/17/18 03/11/22 History Folic Acid 0.4 mg PO HS 04/17/18 03/11/22 History Glimepiride [Amaryl] 4 mg PO BID 04/17/18 03/11/22 History Insulin Detemir (Levemir) [Levemir] 32 unit SQ HS 04/17/18 03/11/22 History Losartan Potassium [Cozaar] 25 mg PO HS 04/17/18 03/11/22 History Warfarin Sodium [Jantoven] 5 mg PO SUMOSA 04/17/18 03/11/22 History metFORMIN HCL [Glucophage] 1,000 mg PO BID 04/17/18 03/11/22 History Docusate [Colace] 100 mg PO DAILY 03/11/22 03/11/22 History Rosuvastatin Calcium 40 mg PO DAILY 03/11/22 03/11/22 History Warfarin [Coumadin] 7.5 mg PO [id number] 03/11/22 03/11/22 History carvediloL [Coreg] 6.25 mg PO BID 03/11/22 03/11/22 History Furosemide [Lasix] 20 mg PO DAILY #7 tab 03/12/22 Rx Allergies Allergy/AdvReac Type Severity Reaction Status Date / Time No Known Allergies Allergy Verified 02/08/23 01:57 Physical Exam Vitals: Vital Signs Temp Pulse Resp BP Pulse Ox 02/08/23 08:12 96 18 142/73 96 02/08/23 06:00 79 18 150/90 95 02/08/23 05:00 90 20 137/84 95 02/08/23 04:00 82 20 133/90 95 02/08/23 03:35 77 20 128/82 95 02/08/23 02:43 22 02/08/23 01:57 97.6 F 85 24 155/82 96 Intake and Output 02/07/23 02/08/23 02/08/23 22:59 06:59 14:59 Other: Weight 108.862 kg Results CBC & Chem 7: 02/08/23 02:54 02/08/23 02:58 Labs: Abnormal Lab Results - Last 24 Hours (Table) 02/08/23 02/08/23 Range/Units 02:54 02:58 PT 29.8 H (10.0-12.5) sec INR 3.0 H (<1.2) APTT 39.7 H (22.0-30.0) sec Glucose 195 H (74-99) mg/dL
[2023-02-08 09:59] LABS: Glucose,Whole Blood 317 mg/dL (70-110)
[2023-02-08] MEDS ORDERED: DILTIAZEM CD 120 MG CAP.ER.24H PO SCH (10:00)
[2023-02-08] MEDS ORDERED: carvediloL 6.25 MG TAB PO SCH (10:00)
[2023-02-08] MEDS ORDERED: DEXTROSE 50% SYRINGE 50 ML IVP PRN ×2 (11:39)
[2023-02-08] MEDS ORDERED: INSULIN ASPART (NovoLOG) 100 UNIT/ML VIAL SQ ONE (12:00)
[2023-02-08 12:05] LABS: Glucose,Whole Blood 293 mg/dL (70-110)
[2023-02-08] MEDS ORDERED: FUROSEMIDE 10 MG/ML 4 ML VIAL IV SCH (16:00)
== END 2023-02-08 12:37 | disposition home or self-care (01) ==
LOC: EC 01:47 → 6NMEDSUR 05:34
PROVIDERS: ADMIT Hospitalist; ATTEND Hospitalist
DX: R06.02 Shortness of breath (principal); I48.20 Chronic atrial fibrillation, unspecified; I11.0 Hypertensive heart disease with heart failure; I50.9 Heart failure, unspecified; E11.9 Type 2 diabetes mellitus without complications; K64.9 Unspecified hemorrhoids; R22.43 Localized swelling, mass and lump, lower limb, bilateral; Z79.01 Long term (current) use of anticoagulants; Z79.84 Long term (current) use of oral hypoglycemic drugs; Z79.4 Long term (current) use of insulin; Z79.899 Other long term (current) drug therapy; Z90.49 Acquired absence of other specified parts of digestive tract; Z98.890 Other specified postprocedural states; Z82.49 Family history of ischemic heart disease and other diseases of the circulatory system
CPT/HCPCS: 96374; 99285; 36415; 93005; 85379; 83880; 80053; 83605; 84484; 85025; 85610; 85730; 71046; G0378; J1940